=== PATIENT | female | born 1960 | race Caucasian/White ===

== ENCOUNTER 2017-06-20 12:32 | Inpatient (IN) | payer MEDICARE, OTHER ==
[~2017-06-20] VITALS: Ht 162.6 cm; Wt 75.4 kg
[~2017-06-20 12:32] MED LIST: ALBU8.5H6 IH; ALBU8.5H8 IH; AMIT25TA PO; ASPIRIN; CARI350T PO; CELE200C PO; CETI10CA PO; CLON1TAB23 PO; ESTR0.5T PO; FENT1PAT17 TD; FLUT16SP21 NS; FLUT1DIS5 IH; GABA800T2 PO; LANS30CA PO; LEXAPRO10 MG PO; LIDO700A4 TP; LISI1TAB5 PO; MESA800T2 PO; METF500T4 PO; METO10TA PO; MILN50TA PO; MONT10TA6 PO; NYST60PO TP; OMEG1CAP2 PO; POLY17PO5 PO; lorazapam
--- NOTE | 2017-06-20 12:44 | EKG ---
[address] [address] Test Date: 2017-06-20 Test Time: 12:39:20 Pat Name: ANÍBAL MOON Department: Room: Gender: F Pricing Supervisor: ARIADNE : 1960 Requested By: MICHELLE PHOENIX Order Number: [id number] Reading MD: Jose Gates Measurements Intervals Bear Rate: 92 P: 28 NE: 138 QRS: 73 QRSD: 82 T: 70 QT: 342 QTc: 428 Interpretive Statements SINUS RHYTHM Electronically Signed On 06-26-2017 14:35:29 PAPER REELER by Jose Gates
[2017-06-20] MEDS ORDERED: ONDANSETRON PF 4 MG/2 ML VIAL. IV ONE (13:00)
[2017-06-20] MEDS ORDERED: LORazepam 2 MG/ML VIAL IV ONE (13:00)
[2017-06-20] MEDS ORDERED: HYDROmorphone PF 1 MG/ML DISP.SYRIN IV/SQ PRN (13:00)
[2017-06-20] MEDS ORDERED: 0.9 % SODIUM CHLORIDE 10 ML DISP.SYRIN. IV PRN (13:00)
[2017-06-20] MEDS ORDERED: IV NORMAL SALINE 1,000ML 1,000 ML IV SCH (13:00)
[2017-06-20 13:22] LABS: BASO % 1 % (0-3); EOS # 0.2 x10^3/uL (0.0-0.7); EOS % 3 % (0-3); HEMATOCRIT 37.5 % (36.0-47.0); HEMOGLOBIN 12.6 g/dL (12.0-15.5); LYMPH # 3.1 x10^3/uL (1.0-4.8); LYMPH % 49 % (24-48); MEAN CORPUSCULAR HEMOGLOBIN 29 pg (25-35); MEAN CORPUSCULAR HGB CONC 34 g/dL (31-37); MEAN CORPUSCULAR VOLUME 87 fL (79-100); MONO # 0.4 x10^3/uL (0.0-1.1); MONO % 6 % (0-9); NEUT # 2.6 x10^3uL (1.8-7.7); NEUT % 41 % (31-73); PLATELET COUNT 228 x10^3/uL (140-400); RED CELL DISTRIBUTION WIDTH 13.2 % (11.5-14.5); WHITE BLOOD COUNT 6.3 x10^3/uL (4.0-11.0)
--- NOTE | 2017-06-20 13:22 | RAD ---
Portable chest, 06/20/2017: History: Chest pain Comparison is made to a study from 08/14/2013. The heart size and pulmonary vascularity are normal. No pulmonary infiltrates are seen. There is no evidence of pleural fluid. IMPRESSION: No acute cardiopulmonary abnormality is detected.
[2017-06-20 13:33] LABS: HEMOGLOBIN ISTAT 13.3 gm/dL; POTASSIUM ISTAT 4.1 mmol/L (3.5-5.0)
--- NOTE | 2017-06-20 13:33 | PHYS DOC ---
Past History Past Medical History: COPD, CVA, GERD, High Cholesterol, Hypertension, IBS, Lung Disease, Migraines, Other Past Surgical History: Other Smoking: Greater than 1 pack/day Alcohol Use: None Drug Use: None Adult General Chief Complaint Chief Complaint: CHEST PAIN HPI HPI This is a pleasant 56-year-old female with a history of emphysema, stress incontinence, history of small CVAs with no residual deficits, chronic ankylosing spondylitis with chronic back pain, fibromyalgia, diabetes, high blood pressure and high cholesterol, migraine history, irritable bowel syndrome , acid reflux, delayed gastric bleeding, COPD who presents with chest pain that began early this morning. Patient began having chest pain about 12:30 PM at rest that was located underneath the left breast with radiation to the left axilla. He did not make her lightheaded and dizzy. It has been waxing and waning since that time. She has been seen by manager product management in the past and prescribed aspirin and nitroglycerin for these pains when she had them. She normal takes one nitroglycerin which relieved his symptoms she took 3 this morning in rapid succession every 5 minutes 3 without much improvement. The pain is not ripping or tearing. It is not sudden onset worst of life. She denies any nausea, vomiting, cough with these symptoms. She also further denies any vomiting or diarrhea. She said the pain is worse with breathing and chest wall movement. It is better when she holds her breath or doesn't move her chest wall. It is not associated with food or position other than putting direct pressure over the ribs on that side. She denies any direct trauma or falls. She also denies any recent trauma or antibiotics. Differential diagnosis for chest pain: Pericarditis, myocarditis, endocarditis, pneumothorax, pneumonia, aortic dissection, esophageal spasm, esophagitis, peptic ulcer disease, acute coronary syndrome, mediastinitis, Boerhaave syndrome , musculoskeletal chest wall pain, costochondritis, intercostal strain, rib fracture, pulmonary contusion, pneumonitis, pleural effusion, pericardial effusion, pericardial tamponode, and pleurisy. EKG done on arrival at 12:39 PM demonstrates a heart rate of 92 there is a P- wave every QRS this is normal sinus rhythm is normal MD interval 138, normal QR S with H2, normal QTC of 428. There is no ST segment T-wave changes consistent with acute coronary ischemia. She does have nonspecific T-wave flattening in V1 and V2 Review of Systems Review of Systems Constitutional: Denies fever or chills [] Eyes: Denies change in visual acuity, redness, or eye pain [] HENT: Denies nasal congestion or sore throat [] Respiratory: He does have an occasional nonproductive cough but no shortness of breath other than the fact that it hurts to breathe [] Cardiovascular: No additional information not addressed in HPI [] GI: Denies abdominal pain, nausea, vomiting, bloody stools or diarrhea [] : Denies dysuria or hematuria [] Musculoskeletal: She has chronic back pain and chronic joint pain along with muscle pain Integument: Denies rash or skin lesions [] Neurologic: Denies headache, focal weakness or sensory changes [] Endocrine: Denies polyuria or polydipsia [] All other systems were reviewed and found to be within normal limits, except as documented in this note. Current Medications Current Medications Current Medications Medications (Trade) Dose Ordered Sig/Chay Start Time Stop Time Status Last Admin Dose Admin Hydromorphone HCl (Dilaudid) 1 mg PRN Q15MIN PRN 06/20/17 13:00 06/21/17 12:59 06/20/17 13:03 1 MG Lorazepam (Ativan) 1 mg 1X ONCE 06/20/17 13:00 06/20/17 13:01 DC 06/20/17 13:04 1 MG Ondansetron HCl (Zofran) 4 mg 1X ONCE 06/20/17 13:00 06/20/17 13:01 DC 06/20/17 13:02 4 MG Sodium Chloride (Normal Saline Flush) 10 ml QSHIFT PRN 06/20/17 13:00 Allergies Allergies Allergies Coded Allergies Type Severity Reaction Last Updated Verified azithromycin Allergy Unknown yellow eyes 06/20/17 Yes carvedilol Allergy Unknown "made me sick" 06/20/17 Yes cephalexin Allergy Unknown 11/26/13 Yes ciprofloxacin Allergy Unknown 11/26/13 Yes fluconazole Allergy Unknown 11/26/13 Yes nebivolol Allergy Unknown 06/20/17 Yes nystatin Allergy Unknown sores in mouth 06/20/17 Yes potassium chloride Allergy Unknown 11/26/13 Yes pravastatin Allergy Unknown unsteady on feet 06/20/17 Yes sulfamethoxazole Allergy Unknown 11/26/13 Yes trimethoprim Allergy Unknown 11/26/13 Yes Uncoded Allergies Type Severity Reaction Last Updated Verified ducolax Adverse Reaction Unknown vomits 06/20/17 hctz Adverse Reaction Unknown gi problems 06/20/17 Physical Exam Physical Exam Other vital signs recorded on the chart patient noted to be hypertensive without tachycardia, hypoxia or tachypnea Constitutional: Well developed, well nourished, patient is obese but obviously uncomfortable she is somewhat anxious and shaky. [] HENT: Normocephalic, atraumatic, bilateral external ears normal, oropharynx dry , no oral exudates, nose normal. [] Eyes: PERRLA, EOMI, conjunctiva normal, no discharge. [] Neck: Normal range of motion, no tenderness, supple, no stridor. [] Cardiovascular:Heart rate regular rhythm, no murmur she has marked tenderness to palpation over the left chest wall underneath the left breast with radiation to the axilla. It is deeper than my fingers and not easily reproduced on exam Lungs & Thorax: Bilateral breath sounds clear to auscultation [] Abdomen: Bowel sounds normal, soft, no tenderness, no masses, no pulsatile masses. [] Skin: Warm, dry, no erythema, she has no dermatomal rash or vesicles on her chest wall. Extremities: No tenderness, no cyanosis, no clubbing, ROM intact, no edema. [] Neurologic: Alert and oriented X 3, normal motor function, normal sensory function, no focal deficits noted. [] Psychologic she seems somewhat anxious her affect is relatively blunted.] Current Patient Data Vital Signs Vital Signs Date Time Temp Pulse Resp B/P (MAP) Pulse Ox O2 Delivery O2 Flow Rate FiO2 06/20/17 13:03 20 96 Lab Results Laboratory Tests Test 06/20/17 13:12 White Blood Count 6.3 x10^3/uL (4.0-11.0) Red Blood Count 4.30 x10^6/uL (3.50-5.40) Hemoglobin 12.6 g/dL (12.0-15.5) Hematocrit 37.5 % (36.0-47.0) Mean Corpuscular Volume 87 fL (79-100) Mean Corpuscular Hemoglobin 29 pg (25-35) Mean Corpuscular Hemoglobin Concent 34 g/dL (31-37) Red Cell Distribution Width 13.2 % (11.5-14.5) Platelet Count 228 x10^3/uL (140-400) Neutrophils (%) (Auto) 41 % (31-73) Lymphocytes (%) (Auto) 49 % (24-48) H Monocytes (%) (Auto) 6 % (0-9) Eosinophils (%) (Auto) 3 % (0-3) Basophils (%) (Auto) 1 % (0-3) Neutrophils # (Auto) 2.6 x10^3uL (1.8-7.7) Lymphocytes # (Auto) 3.1 x10^3/uL (1.0-4.8) Monocytes # (Auto) 0.4 x10^3/uL (0.0-1.1) Eosinophils # (Auto) 0.2 x10^3/uL (0.0-0.7) Basophils # (Auto) 0.0 x10^3/uL (0.0-0.2) EKG EKG [] Radiology/Procedures Radiology/Procedures [] [place] [address] IMAGING REPORT Signed PATIENT: ANÍBAL MOON ACCOUNT: [id number] : 1960 LOCATION: ER AGE: 56 SEX: F EXAM STATUS: REG ER ORD. PHYSICIAN: MICHELLE PHOENIX MD REASON: chest pain PROCEDURE: PORTABLE CHEST 1V Portable chest, 06/20/2017: History: Chest pain Comparison is made to a study from 08/14/2013. The heart size and pulmonary vascularity are normal. No pulmonary infiltrates are seen. There is no evidence of pleural fluid. IMPRESSION: No acute cardiopulmonary abnormality is detected. DICTATED AND SIGNED BY: SUZANNE LUKE MD DATE: 06/20/17 1318 CC: MICHELLE PHOENIX MD; DILLON BERUMEN MD ~ Course & Med Decision Making Course & Med Decision Making Pertinent Labs and Imaging studies reviewed. (See chart for details) \\ Percent for the new onset of chest pain that began about 12:30 PM right before arrival. Patient EKG is unremarkable upon arrival at 12:39 PMDifferential diagnosis for chest pain: Pericarditis, myocarditis, endocarditis, pneumothorax , pneumonia, aortic dissection, esophageal spasm, esophagitis, peptic ulcer disease, acute coronary syndrome, mediastinitis, Boerhaave syndrome, musculoskeletal chest wall pain, costochondritis, intercostal strain, rib fracture, pulmonary contusion, pneumonitis, pleural effusion, pericardial effusion, pericardial tamponode, and pleurisy. patient's heart score which rates need for admission as she score is 4. This is based on age, history, and risk factors. History: Highly suspicious 2 points moderately suspicious 1. slightly suspicious 0 point EKG: ST segment depression 2. nonspecific repolarization disturbance 1. normal 0 point Age: Greater than 65 2 points, 65-45 1., less than 45 years old 0 points Risk factors:> 3 risk factors 2 points, 1-2 risk factors one point, no risk factors 0 point Troponin: > 2 times normal 2 points, 1-2 times normal 1., normal limits 0 point Total score: Score % pts MACE/n MACE Policy 0-3 32% 1.9% 0.05% Discharge 4-6 51% 413/3136 13% 1.3% Observation Risk management 7-10 17% 518/1045 50% 2.8% Observation Treatment, CAG [] AP chest x-ray was reviewed by me demonstrated no acute cardiopulmonary disease. History troponin at approximately 1:30 PM return by i-STAT is negative. CBC, CMP the i-STAT is unremarkable. Target Protection Specialist note: Dr. Holt Target Protection Specialist called at of the service 1:39 pm Consult called back at 1:39 pm Discussed the case I presented and they agreed with admission. Time of acceptance 1:39 "I have assessed this patient clinically and believe that their condition requires an admission to the hospital. After consulting the admitting physician about this case, they have asked that I admit this patient to their service as an inpatient based on the clinical presentation and my impression." Dimer negative at 0.2 to Dragon Disclaimer Dragon Disclaimer This electronic medical record was generated, in whole or in part, using a voice recognition dictation system. Departure Departure: Impression: Primary Impression: Chest pain Additional Impression: Hypertension Disposition: 09 ADMITTED INPATIENT Admitting Physician: Michelle Holt Condition: GUARDED Referrals: DILLON BERUMEN MD (PCP) Problem Qualifiers MICHELLE PHOENIX MD Jun 20, 2017 13:33
[2017-06-20 13:37] LABS: ALBUMIN 3.3 g/dL (3.4-5.0); DIRECT BILIRUBIN 0.1 mg/dL (0.0-0.2); MAGNESIUM 1.6 mg/dL (1.8-2.4); TOTAL BILIRUBIN 0.2 mg/dL (0.2-1.0); TOTAL PROTEIN 6.7 g/dL (6.4-8.2)
[2017-06-20] MEDS ORDERED: ACETAMINOPHEN 325 MG TABLET PO PRN (13:45)
[2017-06-20] MEDS ORDERED: HYDROmorphone PF 1 MG/ML DISP.SYRIN IV PRN (13:45)
[2017-06-20] MEDS ORDERED: NITROGLYCERIN SUBLINGUAL 0.4 MG BOTTLE OF 25. SL PRN ×3 (13:45→17:30)
[2017-06-20] MEDS ORDERED: ONDANSETRON PF 4 MG/2 ML VIAL. IV PRN (14:00)
[2017-06-20] MEDS ORDERED: MAGNESIUM SULFATE 2GM 50 ML IV ONE (14:00)
[2017-06-20 14:28] LABS: BILIRUBIN,URINE NEG (NEG); CLARITY,URINE CLEAR; COLOR,URINE YELLOW; GLUCOSE,URINE NEG (NEG)
[2017-06-20 14:29] LABS: BACTERIA,URINE FEW /HPF (0-FEW); NITRITE,URINE NEG (NEG); RBC,URINE RARE /HPF (0-2); SQUAMOUS EPITHELIAL CELL,UR FEW /LPF; UROBILINOGEN,URINE 0.2 mg/dL (0.2 mg/dL); WBC,URINE 0 /HPF (0-4)
[2017-06-20] MEDS: IPRATRPIUM/ALBUTEROL 0.5/2.5MG 3 ML NEBU. NEB SCH ×2 (15:32→20:00)
[2017-06-20 15:35] VITALS: BP 139/76
[2017-06-20] MEDS ORDERED: FURO-69 PO (16:54)
[2017-06-20] MEDS ORDERED: CETI10TA16 PO (17:08)
[2017-06-20] MEDS ORDERED: METF500T4 PO (17:08)
[2017-06-20] MEDS ORDERED: LIDO700A39 TP (17:08)
[2017-06-20] MEDS ORDERED: LORA1TAB PO (17:08)
[2017-06-20] MEDS ORDERED: GABA-586 PO (17:08)
[2017-06-20] MEDS ORDERED: MESA0.372 PO (17:08)
[2017-06-20] MEDS ORDERED: ESTR0.5T PO (17:08)
[2017-06-20] MEDS ORDERED: ICOS1CAP PO ×2 (17:08→17:13)
[2017-06-20] MEDS ORDERED: METO10TA81 PO (17:08)
[2017-06-20] MEDS ORDERED: FLUO20CA16 PO (17:08)
[2017-06-20] MEDS ORDERED: DICL100G18 TP (17:08)
[2017-06-20] MEDS ORDERED: PANT40TA5 PO (17:08)
[2017-06-20] MEDS ORDERED: ASPI-630 PO (17:08)
[2017-06-20] MEDS ORDERED: CLON1TAB3 PO (17:08)
[2017-06-20] MEDS ORDERED: TIZA4TAB PO (17:08)
[2017-06-20] MEDS ORDERED: BUDE10.22 IH (17:08)
[2017-06-20] MEDS ORDERED: MORP1CAP16 PO (17:08)
[2017-06-20] MEDS ORDERED: MONT10TA6 PO (17:08)
[2017-06-20] MEDS ORDERED: POLY17PO5 PO (17:08)
[2017-06-20] MEDS ORDERED: NITR0.4T SL (17:08)
[2017-06-20] MEDS ORDERED: CHOL500016 PO (17:08)
[2017-06-20] MEDS ORDERED: ALBU8.5H8 INH (17:08)
[2017-06-20] MEDS ORDERED: AMIT10TA PO (17:08)
[2017-06-20] MEDS ORDERED: FURO20TA3 PO (17:08)
[2017-06-20] MEDS ORDERED: CELE200C PO (17:08)
[2017-06-20] MEDS ORDERED: POLYETHYLENE GLYCOL 3350 17 GM PACKET. PO PRN (17:30)
[2017-06-20] MEDS ORDERED: ALBUTEROL SULFATE 8GM INHALER. INH PRN (17:30)
[2017-06-20] MEDS: IV NORMAL SALINE 1,000ML 1,000 ML IV SCH ×2 (17:51→22:00)
[2017-06-20] MEDS ORDERED: ALBUTEROL SULFATE 2.5 MG/3 ML NEBU. NEB PRN (18:00)
[2017-06-20] MEDS: MORPHINE SULFATE 2 MG/ML DISP.SYRIN. IV PRN (18:08)
[2017-06-20 19:36] VITALS: BP 118/72
[2017-06-20] MEDS: tiZANidine 4 MG TABLET. PO SCH (20:14)
[2017-06-20] MEDS: CELECOXIB 200 MG CAPSULE PO SCH (20:14)
[2017-06-20] MEDS: DICLOFENAC SODIUM 1% TOPICAL GEL 100GM TUBE. TP SCH (20:15)
[2017-06-20] MEDS: ALBUTEROL SULFATE 2.5 MG/3 ML NEBU. NEB SCH (20:38)
[2017-06-20] MEDS: BUDESONIDE 0.5 MG/2 ML NEBU NEB SCH (20:39)
[2017-06-20] MEDS ORDERED: AMITRIPTYLINE HCL 10 MG TABLET PO SCH (21:00)
[2017-06-20] MEDS ORDERED: clonazePAM 1 MG TABLET PO SCH ×2 (21:00)
[2017-06-20] MEDS ORDERED: NON FORMULARY ITEM (Icosapent Ethyl (Vascepa) 2 GM) PO SCH (21:00)
[2017-06-20] MEDS ORDERED: MONTELUKAST 10 MG TABLET. PO SCH (21:00)
[2017-06-20] MEDS ORDERED: MESALAMINE PO SCH (21:00)
[2017-06-21 00:39] VITALS: BP 106/65
[2017-06-21] MEDS: MORPHINE SULFATE 2 MG/ML DISP.SYRIN. IV PRN ×2 (02:35→07:51)
[2017-06-21] MEDS: IV NORMAL SALINE 1,000ML 1,000 ML IV SCH (02:38)
[2017-06-21] MEDS: tiZANidine 4 MG TABLET. PO SCH (05:25)
[2017-06-21] MEDS: IPRATRPIUM/ALBUTEROL 0.5/2.5MG 3 ML NEBU. NEB SCH ×2 (05:37→09:23)
[2017-06-21] MEDS: ALBUTEROL SULFATE 2.5 MG/3 ML NEBU. NEB SCH ×2 (05:40→09:25)
[2017-06-21 06:05] VITALS: BP 114/72
[2017-06-21 07:07] LABS: BASO % 1 % (0-3); EOS # 0.2 x10^3/uL (0.0-0.7); EOS % 4 % (0-3); HEMATOCRIT 35.2 % (36.0-47.0); HEMOGLOBIN 11.7 g/dL (12.0-15.5); LYMPH # 3.3 x10^3/uL (1.0-4.8); LYMPH % 62 % (24-48); MEAN CORPUSCULAR HEMOGLOBIN 29 pg (25-35); MEAN CORPUSCULAR HGB CONC 33 g/dL (31-37); MEAN CORPUSCULAR VOLUME 88 fL (79-100); MONO # 0.4 x10^3/uL (0.0-1.1); MONO % 7 % (0-9); NEUT # 1.4 x10^3uL (1.8-7.7); NEUT % 26 % (31-73); PLATELET COUNT 202 x10^3/uL (140-400); RED BLOOD COUNT 4.02 x10^6/uL (3.50-5.40); RED CELL DISTRIBUTION WIDTH 13.3 % (11.5-14.5); WHITE BLOOD COUNT 5.2 x10^3/uL (4.0-11.0)
[2017-06-21 07:16] LABS: ALBUMIN 3.1 g/dL (3.4-5.0); CALCIUM 8.2 mg/dL (8.5-10.1); CREATININE 0.8 mg/dL (0.6-1.0); GFR 73.7; POTASSIUM 4.2 mmol/L (3.5-5.1); TOTAL BILIRUBIN 0.2 mg/dL (0.2-1.0); TOTAL PROTEIN 6.2 g/dL (6.4-8.2)
[2017-06-21] MEDS ORDERED: METOCLOPRAMIDE 10 MG TABLET PO SCH (07:30)
[2017-06-21] MEDS: CELECOXIB 200 MG CAPSULE PO SCH (07:49)
[2017-06-21] MEDS: DICLOFENAC SODIUM 1% TOPICAL GEL 100GM TUBE. TP SCH (07:50)
[2017-06-21 07:56] VITALS: BP 157/87
[2017-06-21] MEDS ORDERED: FLUoxetine HCL 20 MG CAPSULE PO SCH (08:00)
[2017-06-21] MEDS: BUDESONIDE 0.5 MG/2 ML NEBU NEB SCH (08:00)
[2017-06-21] MEDS ORDERED: metFORMIN 500 MG TABLET PO SCH (08:00)
[2017-06-21] MEDS ORDERED: NON FORMULARY ITEM (Budesonide/Formoterol Fumarate (Symbicort 80-4.5 Mcg Inhaler) 1 PUFF) IH SCH (09:00)
[2017-06-21] MEDS ORDERED: NALTREXONE PO SCH (09:00)
[2017-06-21] MEDS ORDERED: GABAPENTIN 300 MG CAPSULE. PO SCH (09:00)
[2017-06-21] MEDS ORDERED: LIDOCAINE (700MG/PATCH) PATCH. TP SCH (09:00)
[2017-06-21] MEDS ORDERED: ESTRADIOL 1 MG TABLET PO SCH (09:00)
[2017-06-21] MEDS ORDERED: PANTOPRAZOLE 40 MG TABLET. PO SCH (09:00)
[2017-06-21] MEDS ORDERED: LORazepam 1 MG TABLET PO SCH (09:00)
[2017-06-21] MEDS ORDERED: CETIRIZINE HCL 10 MG TABLET PO SCH (09:00)
[2017-06-21] MEDS ORDERED: ASPIRIN 81 MG TAB.CHEW PO SCH (09:00)
[2017-06-21] MEDS ORDERED: MORPHINE SULFATE PO SCH (09:00)
[2017-06-21] MEDS ORDERED: FUROSEMIDE 20 MG TABLET PO SCH (09:00)
[2017-06-21] MEDS ORDERED: CHOLECALCIFEROL (VITAMIN D3) 1,000 UNIT TABLET PO SCH (09:00)
[2017-06-21] MEDS ORDERED: MORP15TA PO (09:47)
[2017-06-21] MEDS ORDERED: KETOROLAC 30 MG/ML VIAL. IV ONE (10:00)
--- NOTE | 2017-06-21 16:23 | SSS ---
ADMIT DATE: 06/21/2017 Stay was greater than 8 hours and less than 24. DISCHARGE DIAGNOSES: 1. Chest pain, noncardiac - costochondritis. 2. Fibromyalgia with multiple trigger points on her back. 3. Painful breasts, breast examination is negative. 4. Coronary artery disease. 5. Paroxysmal atrial fibrillation. ALLERGIES: Zithromax, Dulcolax, Carvedilol, cephalexin, Cipro, duloxetine, fluconazole, hydrochlorothiazide, nebivolol, nitrofurantoin, nystatin, potassium, pravastatin, pregabalin, sulfamethoxazole, trimethoprim sulfamethoxazole, and varenicline. Medications were reviewed. The patient corrected them. HOSPITAL COURSE: Basically, this is a 56-year-old female who developed left-sided chest pain under her ribs radiating to the back. The patient denied any type of exertional activity such as furniture lifting or anything like that. She has care provider that takes care of her. She took 3 nitroglycerin that did not relieve her pain. So, she presented to the emergency room. Workup was negative for IL, and while admitted, she received morphine and Toradol injection. She also was seen by cardiology. OBJECTIVE: VITAL SIGNS: Blood pressure 114/72, temperature 97.5, pulse 70, respirations 18, pulse ox 95% on room air. GENERAL: The patient is alert and oriented. Her color is good. Her tongue was moist, it is midline. NECK: Supple. LUNGS: Clear. CARDIOVASCULAR: Regular rhythm and rate. ABDOMEN: Soft, nontender. EXTREMITIES: Without edema. MUSCULOSKELETAL: The patient has exquisite palpatory tenderness to the anterior chest wall as well as the back musculature and over the left scapula. BREASTS: Reveals no masses; however, the exam was quite tender as far as palpatory goes. She is also tender in the axillae. LABORATORY DATA: Hemoglobin 11.7, hematocrit 35.2. Troponins were negative. Urine also negative. D-dimer negative. PLAN: The patient given 15 of short-acting morphine sulfate, immediate acting #15, 15 mg. She is on 100 mg of morphine daily, long acting combination with naltrexone. She will get with Dr. Hurd and informed her of this additional prescription. She will follow up for that mammogram and ultrasound that she had scheduled, but had to be canceled because of today. ZACK MEDINA DO DR: Ramandeep JOB#: [id number] / [id number]
--- NOTE | 2017-06-22 13:53 | EKG ---
[address] [address] Test Date: 2017-06-21 Test Time: 06:46:14 Pat Name: ANÍBAL MOON Department: Room: 117 A Gender: Seed Technician: : 1960 Requested By: ZACK MEDINA Order Number: [id number] Reading MD: Jose Gates Measurements Intervals Calvin Rate: P: MT: QRS: QRSD: T: QT: QTc: Interpretive Statements No previous ECG available for comparison Electronically Signed On 06-26-2017 16:41:23 SHEET PILE DRIVER OPERATOR by Jose Gates
== END 2017-06-21 10:55 | disposition home or self-care (01) | DRG 206 ==
LOC: ER 12:32 → 1 SOUTH 13:39
PROVIDERS: ADMIT Family Medicine; ATTEND Family Medicine
DX: M94.0 Chondrocostal junction syndrome [Tietze] (principal); I48.0 Paroxysmal atrial fibrillation; G43.909 Migraine, unspecified, not intractable, without status migrainosus; E11.9 Type 2 diabetes mellitus without complications; E66.9 Obesity, unspecified; E78.00 Pure hypercholesterolemia, unspecified; I10 Essential (primary) hypertension; I25.10 Atherosclerotic heart disease of native coronary artery without angina pectoris; K21.9 Gastro-esophageal reflux disease without esophagitis; K58.9 Irritable bowel syndrome, unspecified; M79.7 Fibromyalgia; F17.210 Nicotine dependence, cigarettes, uncomplicated; G89.29 Other chronic pain; N64.4 Mastodynia; M54.9 Dorsalgia, unspecified; J44.9 Chronic obstructive pulmonary disease, unspecified; Z88.1 Allergy status to other antibiotic agents; Z88.2 Allergy status to sulfonamides; Z86.73 Personal history of transient ischemic attack (TIA), and cerebral infarction without residual deficits; Z88.8 Allergy status to other drugs, medicaments and biological substances; Z68.28 Body mass index [BMI] 28.0-28.9, adult
CPT/HCPCS: 36415; 71010; 80047; 80053; 80076; 81001; 82947; 83690; 83735; 84443; 84484; 85025; 85379; 93005; 94640; J1170; J1885; J2060; J2270; J2405; J3475; J7613; J7620; J7626; J8597; J7030

== ENCOUNTER 2018-11-29 08:45 | Emergency (ER) | payer OTHER ==
[~2018-11-29] VITALS: Ht 161.3 cm; Wt 91.3 kg
[~2018-11-29 08:45] MED LIST changes: +ALBU2.5V8 IH; +ALBU2.5V8 INH; -ALBU8.5H8 IH; +AMIT10TA PO; +ASPI-630 PO; +BUDE10.22 IH; +CETI10TA16 PO; +CHOL500016 PO; +CLON1TAB11 PO; +DICL100G18 TP; +FLUO20CA16 PO; +FURO-69 PO; +FURO20TA3 PO; +GABA-586 PO; -GABA800T2 PO; +GABA800T5 PO; +ICOS1CAP PO; +LIDO700A39 TP; +LORA-254 PO; +MESA0.372 PO; +METF500T16 PO; -METF500T4 PO; +METO10TA81 PO; +MORP15TA PO; +MORP1CAP16 PO; +NITR0.4T SL; +PANT40TA5 PO; +TIZA4TAB PO
--- NOTE | 2018-11-29 09:42 | PHYS DOC ---
Past History Past Medical History: COPD, CVA, GERD, High Cholesterol, Hypertension, IBS, Lung Disease, Migraines, Other Past Surgical History: Hysterectomy, Other Smoking: Greater than 1 pack/day Alcohol Use: None Drug Use: None Adult General Chief Complaint Chief Complaint: KNEE SWELLING [facility] HPI Patient is a 58-year-old female with a history of chronic pain who is on EMBEDA with a recent diagnosis of a left Lopez cyst. She states the pain from this cyst is causing some breakthrough discomfort. She states she is been in contact with her primary care physician in [place] was told her an ice and heat regimen along with trying to alternate Tylenol and aspirin for the discomfort. Patient states she is here for something stronger for pain.] Review of Systems Review of Systems Constitutional: Denies fever or chills [] Eyes: Denies change in visual acuity, redness, or eye pain [] HENT: Denies nasal congestion or sore throat [] Respiratory: Denies cough or shortness of breath [] Cardiovascular: No additional information not addressed in HPI [] GI: Denies abdominal pain, nausea, vomiting, bloody stools or diarrhea [] : Denies dysuria or hematuria [] Musculoskeletal: Pain Left leg behind the knee[] Integument: Denies rash or skin lesions [] Neurologic: Denies headache, focal weakness or sensory changes [] Endocrine: Denies polyuria or polydipsia [] All other systems were reviewed and found to be within normal limits, except as documented in this note. Allergies Allergies Allergies Coded Allergies Type Severity Reaction Last Updated Verified carvedilol Allergy Intermediate "made me sick" 06/23/17 Yes cephalexin Allergy Intermediate 06/23/17 Yes ciprofloxacin Allergy Intermediate 06/23/17 Yes duloxetine Allergy Intermediate MUSCLE ACHES 06/23/17 Yes fluconazole Allergy Intermediate 06/23/17 Yes nebivolol Allergy Intermediate 06/23/17 Yes nitrofurantoin Allergy Intermediate LEG ACHES 06/23/17 Yes nystatin Allergy Intermediate sores in mouth 06/23/17 Yes potassium chloride Allergy Intermediate "K DUR" 06/23/17 Yes pravastatin Allergy Intermediate unsteady on feet 06/23/17 Yes pregabalin Allergy Intermediate WORSENED FIBROMYALGIA 06/23/17 Yes sulfamethoxazole Allergy Intermediate 06/23/17 Yes trimethoprim Allergy Intermediate 06/23/17 Yes varenicline Allergy Intermediate NIGHT TERRORS 06/23/17 Yes azithromycin Allergy Mild yellow eyes 06/23/17 Yes bisacodyl Allergy Mild VOMITS 06/20/17 Yes hydrochlorothiazide Allergy Mild GI PROBLEMS 06/20/17 Yes Physical Exam Physical Exam Constitutional: Well developed, well nourished, no acute distress, non-toxic appearance. [] HENT: Normocephalic, atraumatic, bilateral external ears normal, oropharynx moist, no oral exudates, nose normal. [] Eyes: PERRLA, EOMI, conjunctiva normal, no discharge. [] Neck: Normal range of motion, no tenderness, supple, no stridor. [] Cardiovascular:Heart rate regular rhythm, no murmur [] Lungs & Thorax: Bilateral breath sounds clear to auscultation [] [] Extremities: No significant left leg swelling. [] Neurologic: Alert and oriented X 3, normal motor function, normal sensory function, no focal deficits noted. [] Psychologic: Anxious and agitated. [] EKG EKG [] Radiology/Procedures Radiology/Procedures [] Course & Med Decision Making Course & Med Decision Making Pertinent Labs and Imaging studies reviewed. (See chart for details) ED course: Evaluation reveals a 58-year-old female who is on morphine for chronic pain with some pain in her left leg. Informed patient that there would be nothing that I could give her in the emergency department to help her with her discomfort today. I've encouraged her to take Tylenol or ibuprofen at home. This is the patient needs to follow with her primary care physician for management of her chronic pain.] Dragon Disclaimer Dragon Disclaimer This electronic medical record was generated, in whole or in part, using a voice recognition dictation system. Departure Departure: Impression: Primary Impression: Chronic pain disorder Additional Impression: Lopez's cyst of knee Disposition: HOME, SELF-CARE Condition: STABLE Referrals: DILLON BERUMEN MD (PCP) Patient Instructions: Chronic Pain, Chronic Pain Management Additional Instructions: You need to follow with your primary care physician for the management of your chronic pain and now with the additional pain caused by a Lopez's cyst. The Emergency Department will not manage chronic pain syndromes. The medication that you are on for pain is very strong. Continue the ice and heat regimen as prescribed by your primary care physician. You can take Tylenol 500 mg every 6 hours as needed. Problem Qualifiers Additional Impression: Lopez's cyst of knee Laterality: left Qualified Codes: M71.22 - Synovial cyst of popliteal space [Lopez], left knee HI FOFANA DO November 29, 2018 09:42
[2018-11-29 09:47] VITALS: BP 132/85
== END 2018-11-29 09:47 | disposition home or self-care (01) ==
LOC: ER 08:45
DX: G89.29 Other chronic pain (principal); M71.22 Synovial cyst of popliteal space [Baker], left knee; J44.9 Chronic obstructive pulmonary disease, unspecified; K21.9 Gastro-esophageal reflux disease without esophagitis; E78.00 Pure hypercholesterolemia, unspecified; I10 Essential (primary) hypertension; G43.909 Migraine, unspecified, not intractable, without status migrainosus; K58.9 Irritable bowel syndrome, unspecified; F17.200 Nicotine dependence, unspecified, uncomplicated; Z86.73 Personal history of transient ischemic attack (TIA), and cerebral infarction without residual deficits; Z88.1 Allergy status to other antibiotic agents; Z88.8 Allergy status to other drugs, medicaments and biological substances; Z88.2 Allergy status to sulfonamides
CPT/HCPCS: 99281

== ENCOUNTER 2019-11-11 17:29 | Inpatient (IN) | payer OTHER, MEDICAID ==
[~2019-11-11] VITALS: Ht 161.3 cm; Wt 97.2 kg
[~2019-11-11 17:29] MED LIST changes: +LIDO700A21 TP; -LIDO700A39 TP; +LISI1TAB19 PO; -LISI1TAB5 PO; -MONT10TA6 PO; +MONT10TA80 PO; -NITR0.4T SL; +NITR0.4T24 SL; -TIZA4TAB PO; +TIZA4TAB2 PO
--- NOTE | 2019-11-11 18:00 | PHYS DOC ---
Past History Past Medical History: Anemia, Anxiety, Arthritis, Bronchitis, COPD, CVA, Diabetes, Fibromyalgia, GERD, High Cholesterol, Hypertension, IBS, Lung Disease, Migraines, Pneumonia, Seizure, Stroke, TIA, Other Past Surgical History: Hysterectomy, Other Smoking: Greater than 1 pack/day Alcohol Use: None Drug Use: None General Adult EDM: Chief Complaint: COUGH HPI: HPI: "... I need a new antibiotic...this one that Dr. Berumen gave me is not working.. I am cough all the time...." " Yes I am still smoking... but a lot less..." " I can't stop coughing...so...I need a different antibiotic..."..." I think my tongue is swollen or got a yeast infection from the antibiotic that Kory put me on..." " I get short of breath...when I have to go very far...".."...I get so anxious"..... Patient is a 59 year old female who presents with above hx and complaints of cough. Pt. follows with Dr. Berumen. Patient advised that she has a chronic cou gh but is been worse the last 2 days. Patient states anytime she takes an antibiotic she gets thrush. Patient still smokes. Patient denies any specific ill contacts. Patient denies any recent travel outside the [place] area. Patient has history of past medical problems of Mellkerson Rosanthal Syndrome, stress urinary incontinence, small TIAs and strokes, ankylosing spondylitis, fibromyalgia, diabetes, elevated cholesterol, migraines, IBS, GERD, slow gastric transit time, multiple food allergies, multiple antibiotic allergies, seasonal allergies, B12 deficiency, chronic anemia, absent seizure spells, COPD, anxiety disorder and chronic bronchitis. Patient currently on Augmentin 875 twice a day. Patient advised that she has been using her inhaler every 2 hours. Patient denies any recent use of steroids. Patient states she frequently requesting an nurse to return to her room and check her saturations. Patient does not use chronic oxygen for her COPD and brought chronic bronchitis. Patient denies any recent use of steroids. Patient denies any tarry stools or changes and characteristics of her stooling. Patient saturations remained above 95% while off oxygen during her entire ED stay. Review of Systems: Review of Systems: Constitutional: Complains of subjective fever Eyes: Denies change in visual acuity HENT: Complains of nasal congestion Respiratory: Complains of a non-productive cough and shortness of breath Cardiovascular: Denies chest pain or edema GI: Denies abdominal pain, nausea, vomiting, bloody stools or diarrhea : Denies dysuria Musculoskeletal: complaints of chronic fibromyalgia Integument: Denies rash Neurologic: Denies headache, focal weakness or sensory changes Endocrine: Denies polyuria or polydipsia Lymphatic: Denies swollen glands Psychiatric: Hx. of anxiety Heart Score: HEART Score for Chest Pain: HEART Score for Chest Pain Response (Comments) Value History Slighlty/Non-Suspicious 0 ECG Normal 0 Age >45 - < 65 1 Risk Factors 1 or 2 Risk Factors 1 Troponin < Normal Limit 0 Total 2 Risk Factors: Risk Factors: DM, Current or recent (<one month) smoker, HTN, HLP, family h istory of CAD, obesity. Risk Scores: Score 0 - 3: 2.5% MACE over next 6 weeks - Discharge Home Score 4 - 6: 20.3% MACE over next 6 weeks - Admit for Clinical Observation Score 7 - 10: 72.7% MACE over next 6 weeks - Early Invasive Strategies Family History: Family History: Noncontributory Current Medications: Current Meds: See nursing for home meds Allergies: Allergies: Allergies Coded Allergies Type Severity Reaction Last Updated Verified carvedilol Allergy Intermediate "made me sick" 06/23/17 Yes cephalexin Allergy Intermediate 11/29/18 Yes ciprofloxacin Allergy Intermediate 11/29/18 Yes duloxetine Allergy Intermediate MUSCLE ACHES 11/29/18 Yes fluconazole Allergy Intermediate 11/29/18 Yes nebivolol Allergy Intermediate 11/29/18 Yes nitrofurantoin Allergy Intermediate LEG ACHES 11/29/18 Yes nystatin Allergy Intermediate sores in mouth 11/29/18 Yes potassium chloride Allergy Intermediate "K DUR" 11/29/18 Yes pravastatin Allergy Intermediate unsteady on feet 11/29/18 Yes pregabalin Allergy Intermediate WORSENED FIBROMYALGIA 11/29/18 Yes sulfamethoxazole Allergy Intermediate 11/29/18 Yes trimethoprim Allergy Intermediate 11/29/18 Yes varenicline Allergy Intermediate NIGHT TERRORS 11/29/18 Yes azithromycin Allergy Mild yellow eyes 11/29/18 Yes bisacodyl Allergy Mild VOMITS 11/29/18 Yes hydrochlorothiazide Allergy Mild GI PROBLEMS 11/29/18 Yes losartan Allergy Unknown 11/29/18 Yes Physical Exam: PE: Constitutional: Very anxious, non-toxic appearance. [] HENT: Normocephalic, atraumatic, bilateral external ears normal, oropharynx moist, no oral exudates, nose swollen turbinates and clear rhinorrhea Eyes: PERRLA, EOMI, conjunctiva normal, no discharge. [] Neck: Normal range of motion, no tenderness, supple, no stridor. [] Cardiovascular: Tachycardia heart rate regular rhythm, no murmur [] Lungs & Thorax: Bilateral breath sounds equal at apex with scattered wheezing throughout on auscultation. The pt.has some basilar crackles Abdomen: Bowel sounds normal, soft, no tenderness, no masses, no pulsatile masses. Old surgical scar Skin: Warm, dry, no erythema, no rash. [] Back: No tenderness, no CVA tenderness. [] Extremities: No tenderness, no cyanosis, no clubbing, ROM intact, bilateral ankle edema. [] No specific findings of cording noted in the legs. Neurologic: Alert and oriented X 3, normal motor function, normal sensory function, no focal deficits noted. DTRs +2 patellar and brachial Psychologic: Affect extremely anxious , judgement poor understanding of medical issues , . Patient refusing all medical exams at least once, decided to sign out AMA. However after patient discharge patient decided she wanted to stay and check back in. EKG: EKG: My interpretation EKG shows a sinus tachycardia at 101 bpm. No findings of acute STEMI of contralateral changes .[] Radiology/Procedures: Radiology/Procedures: [][address] [address] IMAGING REPORT Signed PATIENT: ANÍBAL MOON DACCOUNT: [id number] : 1960 LOCATION: ER AGE: 59 SEX: F EXAM STATUS: REG ER ORD. PHYSICIAN: VINCENT DE LA ROSA MD REASON: cough PROCEDURE: CHEST PA & LATERAL Chest radiograph 11/11/2019 6:35 PM INDICATION: Cough COMPARISON: 06/18/2017 TECHNIQUE: Frontal and lateral views of the chest are provided. FINDINGS: The cardiomediastinal silhouette is within normal limits. There are no pleural effusions. There is no pulmonary vascular congestion. There is no pneumothorax. Perihilar mixed interstitial and alveolar airspace disease is present. No significant osseous abnormality is identified. IMPRESSION: Perihilar mixed interstitial and alveolar airspace disease may represent multifocal pneumonia versus pulmonary edema. Recommend follow-up to resolution. Electronically signed by: Sheila Golden MD (11/11/2019 6:59 PM) [facility] DICTATED AND SIGNED BY: SHEILA GOLDEN MD DATE: 11/11/191858 CC: VINCENT DE LA ROSA MD; DILLON BERUMEN MD ~ Course & Med Decision Making: Course & Med Decision Making Pertinent Labs and Imaging studies reviewed. (See chart for details) Pt. Admitted to Dr. Casanova/ Dr. Dia. Discussed presentation test and treatment plan with . Will obtain a cardiology consult because of possible CHF. Impression: 1. Pneumonia-atypical 2. Leukocytosis 16.8 3. Anemia 6.7 microcytic hypochromic 4. Hyponatremia 131 5. Elevated creatinine 1.3 6. [id number] 7. Elevated [id number] dysfunction 8. Elevated d-dimer 1.37 9. Anxiety disorder 10.COPD/Chronic Bronchitis 11.Tobacco Use [] Dragon Disclaimer: Dragon Disclaimer: This electronic medical record was generated, in whole or in part, using a voice recognition dictation system. Departure Departure: Disposition: 01 HOME/RESIDENCE PRIOR TO ADM Condition: STABLE Referrals: DILLON BERUMEN MD (PCP) COVID-19 Assessment COVID-19 Patient Risks: Age 65 or older: No Sign of co-morbidity: Yes (CHRONIC BRONCHITIS, COPD,) Exp to person + for COVID: No Travel from affected area: No Lower respiratory symptoms: Yes Fever: No Comments: Use N95 face mask and eye protection as provided. VINCENT DE LA ROSA MD Nov 11, 2019 18:00
[2019-11-11] MEDS ORDERED: IV RINGERS SOLUTION,LACTATED 1,000 ML IV SCH (18:40)
--- NOTE | 2019-11-11 18:44 | EKG ---
[address] [address] Test Date: 2019-11-11 Test Time: 17:56:15 Pat Name: ANÍBAL MOON Department: Room: Gender: F Bi Lead: : 1960 Requested By: VINCENT DE LA ROSA Order Number: [id number] Reading MD: Jose Gates Measurements Intervals [place] Rate: 101 P: 52 [place]: 132 QRS: 45 QRSD: 82 T: 52 QT: 334 QTc: 434 Interpretive Statements SINUS TACHYCARDIA Electronically Signed On 11-12-2019 7:55:06 CDT by Jose Gates
[2019-11-11 18:46] LABS: BASO # 0.1 x10^3/uL (0.0-0.2); BASO % 1 % (0-3); EOS # 0.1 x10^3/uL (0.0-0.7); EOS % 0 % (0-3); HEMATOCRIT 22.5 % (36.0-47.0); LYMPH # 1.8 x10^3/uL (1.0-4.8); LYMPH % 11 % (24-48); MEAN CORPUSCULAR HEMOGLOBIN 19 pg (25-35); MEAN CORPUSCULAR HGB CONC 30 g/dL (31-37); MEAN CORPUSCULAR VOLUME 64 fL (79-100); MONO % 6 % (0-9); NEUT # 13.8 x10^3uL (1.8-7.7); NEUT % 82 % (31-73); PLATELET COUNT 346 x10^3/uL (140-400); RED BLOOD COUNT 3.54 x10^6/uL (3.50-5.40); RED CELL DISTRIBUTION WIDTH 19.1 % (11.5-14.5); WHITE BLOOD COUNT 16.8 x10^3/uL (4.0-11.0)
[2019-11-11 18:50] LABS: CALCIUM 8.7 mg/dL (8.5-10.1); CREATININE 1.3 mg/dL (0.6-1.0); GFR 41.6; POTASSIUM 3.9 mmol/L (3.5-5.1)
[2019-11-11 18:53] LABS: HEMOGLOBIN 6.7 g/dL (12.0-15.5)
[2019-11-11 19:02] LABS: ALBUMIN 3.1 g/dL (3.4-5.0); DIRECT BILIRUBIN 0.2 mg/dL (0.0-0.2); MAGNESIUM 1.6 mg/dL (1.8-2.4); TOTAL BILIRUBIN 0.5 mg/dL (0.2-1.0); TOTAL PROTEIN 7.3 g/dL (6.4-8.2)
--- NOTE | 2019-11-11 19:02 | RAD ---
Chest radiograph 11/11/2019 6:35 PM INDICATION: Cough COMPARISON: 06/18/2017 TECHNIQUE: Frontal and lateral views of the chest are provided. FINDINGS: The cardiomediastinal silhouette is within normal limits. There are no pleural effusions. There is no pulmonary vascular congestion. There is no pneumothorax. Perihilar mixed interstitial and alveolar airspace disease is present. No significant osseous abnormality is identified. IMPRESSION: Perihilar mixed interstitial and alveolar airspace disease may represent multifocal pneumonia versus pulmonary edema. Recommend follow-up to resolution. Electronically signed by: Mattie Garcia MD (11/11/2019 6:59 PM) ANNELISE
[2019-11-11 19:12] LABS: BARBITURATES NEG (NEG); BENZODIAZEPINES NEG (NEG); CANNABINOIDS NEG (NEG); COCAINE NEG (NEG); METHADONE NEG (NEG); OPIATES POS (NEG); PHENCYCLIDINE NEG (NEG)
[2019-11-11 19:14] LABS: AMPHETAMINE/METHAMPHETAMINE NEG (NEG)
[2019-11-11] MEDS ORDERED: FAMOTIDINE 20 MG/2 ML VIAL IVP ONE (19:30)
[2019-11-11 21:08] LABS: % BANDS 16 % (0-9); % LYMPHS 7 % (24-48); % MONOS 11 % (0-10); % SEGS 66 % (35-66)
[2019-11-11] MEDS ORDERED: ENOXAPARIN ** NOTE DOSE ** SYRINGE SQ ONE (21:25)
[2019-11-11 21:41] LABS: HYPOCHROMIA MOD
[2019-11-11 21:42] LABS: ANISOCYTOSIS PRESENT; MICROCYTOSIS PRESENT; POLYCHROMASIA PRESENT
[2019-11-11 21:43] LABS: PLT ESTIMATE ADEQUATE (ADEQUATE)
[2019-11-11] MEDS ORDERED: ACETAMINOPHEN 325 MG TABLET PO PRN (21:45)
[2019-11-11] MEDS ORDERED: ONDANSETRON PF 4 MG/2 ML VIAL. IVP PRN (21:45)
[2019-11-11 21:46] LABS: OVALOCYTES PRESENT; TARGET CELLS PRESENT; TEAR DROP CELLS PRESENT
[2019-11-11] MEDS ORDERED: LORazepam 1 MG TABLET PO ONE (22:15)
[2019-11-11] MEDS ORDERED: diphenhydrAMINE 50 MG/ML VIAL IVP ONE (22:15)
[2019-11-11] MEDS ORDERED: PIPERACILLIN/TAZOBACTAM 2.25 GM in IV NORMAL SALINE 50ML 50 ML IV SCH (23:00)
[2019-11-11] MEDS ORDERED: DULA1.5P SQ (23:16)
[2019-11-11] MEDS ORDERED: ESTR0.45 PO (23:16)
[2019-11-11 23:20] VITALS: BP 140/72
[2019-11-11] MEDS ORDERED: ESTR30CR VG (23:51)
[2019-11-12] VITALS (11 sets, daily range): BP systolic 119–184; BP diastolic 61–92
[2019-11-12 06:18] LABS: BASO # 0.1 x10^3/uL (0.0-0.2); BASO % 1 % (0-3); EOS # 0.2 x10^3/uL (0.0-0.7); EOS % 1 % (0-3); LYMPH # 1.7 x10^3/uL (1.0-4.8); LYMPH % 10 % (24-48); MEAN CORPUSCULAR HEMOGLOBIN 20 pg (25-35); MEAN CORPUSCULAR HGB CONC 31 g/dL (31-37); MEAN CORPUSCULAR VOLUME 66 fL (79-100); MONO % 6 % (0-9); NEUT # 12.9 x10^3uL (1.8-7.7); NEUT % 82 % (31-73); PLATELET COUNT 337 x10^3/uL (140-400); RED BLOOD COUNT 3.93 x10^6/uL (3.50-5.40); RED CELL DISTRIBUTION WIDTH 20.8 % (11.5-14.5); WHITE BLOOD COUNT 15.9 x10^3/uL (4.0-11.0)
[2019-11-12 06:22] LABS: CALCIUM 9.3 mg/dL (8.5-10.1); GFR 56.4
[2019-11-12] MEDS ORDERED: IOHEXOL 350 MG/ML 100 ML VIAL. IV ONE (07:45)
--- NOTE | 2019-11-12 07:54 | PDOC2 ---
CARDIAC CONSULT DATE OF CONSULT Date Of Consult DATE: 11/12/19 TIME: 07:46 REASON FOR CONSULT Reason for Consult CHF REFERRING PHYSICIAN Referring Physician Dr. Mendoza SOURCE Source: Chart review, Patient HPI History of Present Illness This is a 59 yo female who presented secondary to cough. PAST MEDICAL HISTORY Cardiovascular: hyperipidemia Pulmonary: COPD CENTRAL NERVOUS SYSTEM: Periperal neuropathy, TIA GI: GERD, Irritable bowel disease Psych: Anxiety, Depression Musculoskeletal: Osteoarthritis Rheumatologic: Fibromyalgia Endocrine: Diabetes PAST SURGICAL HISTORY Past Surgical History: No pertinent history FAMILY HISTORY Family History: Heart Disease SOCIAL HISTORY Smoke: 1 pack per day ALCOHOL: none Drugs: None Lives: Alone CURRENT MEDICATIONS Current Medications Current Medications Lactated Ringer's 1,000 ml @ 1,000 mls/hr Q1H IV Last administered on 11/11/19at 18:53; Start 11/11/19 at 18:40; Stop 11/11/19 at 19:39; Status DC Famotidine (Pepcid Vial) 20 mg 1X ONCE IVP Last administered on 11/11/19at 20:55; Start 11/11/19 at 19:30; Stop 11/11/19 at 19:31; Status DC Enoxaparin Sodium (Lovenox 100mg Syringe) 90 mg 1X ONCE SQ Last administered on 11/11/19at 21:27; Start 11/11/19 at 21:25; Stop 11/11/19 at 21:26; Status DC Ondansetron HCl (Zofran) 4 mg PRN Q4HRS PRN IVP NAUSEA/VOMITING; Start 11/11/19 at 21:45; Stop 11/12/19 at 21:44 Acetaminophen (Tylenol) 650 mg PRN Q4HRS PRN PO FEVER; Start 11/11/19 at 21:45; Stop 11/12/19 at 21:44 Albuterol/ Ipratropium (Duoneb) 3 ml RTQID NEB ; Start 11/12/19 at 08:00; Stop 11/13/19 at 07:59 Piperacillin Sod/ Tazobactam Sod 2.25 gm/Sodium Chloride 50 ml @ 100 mls/hr BID IV ; Start 11/11/19 at 23:00; Stop 11/12/19 at 00:40; Status DC Lorazepam (Ativan) 2 mg 1X ONCE PO Last administered on 11/12/19at 00:46; Start 11/11/19 at 22:15; Stop 11/11/19 at 22:16; Status DC Diphenhydramine HCl (Benadryl) 25 mg 1X ONCE IVP Last administered on 11/12/19at 01:40; Start 11/11/19 at 22:15; Stop 11/11/19 at 22:16; Status DC Iohexol (Omnipaque 350 Mg/ml) 100 ml 1X ONCE IV ; Start 11/12/19 at 07:45; Stop 11/12/19 at 07:46; Status UNV Active Scripts Active Reported Premarin (Estrogens, Conjugated) 30 Gm Cream.appl 0.5 Gm VG TWICE WEEKLY Trulicity (Dulaglutide) 1.5 Mg/0.5 Ml Pen.injctr 1.5 Mg SQ PRN PRN Nitrostat (Nitroglycerin) 0.4 Mg Tab.subl 1 Tab SL UD PRN Prozac (Fluoxetine Hcl) 20 Mg Capsule 1 Cap PO DAILYWBKFT Vitamin D3 (Cholecalciferol (Vitamin D3)) 5,000 Unit Tablet 1 Tab PO DAILY Miralax (Polyethylene Glycol 3350) 17 Gm Powd.pack 1 Packet PO DAILY PRN Aspirin 81 Mg Tab.chew 81 Mg PO DAILY Voltaren (Diclofenac Sodium) 100 Gm Gel..gram. 1 Gm TP TID Metformin Hcl 500 Mg Tablet 1 Tab PO DAILY Tizanidine Hcl (Tizanidine HCl) 4 Mg Tablet 4 Mg PO TID Symbicort 80-4.5 Mcg Inhaler (Budesonide/Formoterol Fumarate) 10.2 Gm Hfa.aer.ad 1 Puff IH DAILY Cetirizine Hcl 10 Mg Tablet 1 Tab PO DAILY Apriso (Mesalamine) 0.375 Gm Cap.er.24h 1 Cap PO PRN BID PRN Pantoprazole Sodium 40 Mg Tablet.dr 1 Tab PO DAILY Celebrex (Celecoxib) 200 Mg Capsule 1 Cap PO BID Singulair Tablet (Montelukast Sodium) 10 Mg Tablet 10 Mg PO HS Vascepa (Icosapent Ethyl) 1 Gm Capsule 2 Gm PO BID Estradiol 0.5 Mg Tablet 1 Tab PO DAILY Reglan (Metoclopramide Hcl) 10 Mg Tablet 0.5 Tab PO TIDAC Clonazepam 1 Mg Tablet 2 Tab PO QHS Amitriptyline Hcl 10 Mg Tablet 3 Tab PO QHS Gabapentin (Gabapentin) 300 Mg Capsule 900 Mg PO DAILY Ativan (Lorazepam) 1 Mg Tablet 1 Tab PO DAILY Furosemide 20 Mg Tablet 10 Mg PO DAILY Proair Hfa Inhaler (Albuterol Sulfate) 8.5 Gm Hfa.aer.ad 1 Puff INH PRN Q8HRS PRN Embeda ER 100-4 mg Capsule (Morphine Sulfate/Naltrexone) 1 Each Cap.er.po 1 Each PO DAILY ALLERGIES Allergies: Coded Allergies: carvedilol (Verified Allergy, Intermediate, "made me sick", 06/23/17) cephalexin (Verified Allergy, Intermediate, 11/11/19) ciprofloxacin (Verified Allergy, Intermediate, 11/29/18) duloxetine (Verified Allergy, Intermediate, MUSCLE ACHES, 11/29/18) fluconazole (Verified Allergy, Intermediate, 11/29/18) nebivolol (Verified Allergy, Intermediate, 11/29/18) nitrofurantoin (Verified Allergy, Intermediate, LEG ACHES, 11/29/18) nystatin (Verified Allergy, Intermediate, sores in mouth, 11/29/18) potassium chloride (Verified Allergy, Intermediate, "K DUR", 11/29/18) pravastatin (Verified Allergy, Intermediate, unsteady on feet, 11/29/18) pregabalin (Verified Allergy, Intermediate, WORSENED FIBROMYALGIA, 11/29/18) sulfamethoxazole (Verified Allergy, Intermediate, 11/29/18) trimethoprim (Verified Allergy, Intermediate, 11/29/18) varenicline (Verified Allergy, Intermediate, NIGHT TERRORS, 11/29/18) azithromycin (Verified Allergy, Mild, yellow eyes, 11/29/18) bisacodyl (Verified Allergy, Mild, VOMITS, 11/29/18) fluticasone (Verified Allergy, Mild, Anxiety, 11/11/19) anger, irritibility hydrochlorothiazide (Verified Allergy, Mild, GI PROBLEMS, 11/29/18) losartan (Verified Allergy, Unknown, 11/29/18) ROS Review of Systems 14 point ROS conducted with pertinent positives noted above in HPI PHYSICAL EXAM General: Alert, Oriented X3, Cooperative HEENT: Atraumatic, Mucous membr. moist/pink Lungs: Other (diminished bases ) Abdomen: Soft, Other (obese) Extremities: Other (trace bilateral LE edema ) Skin: No breakdown Neuro: Normal speech, Sensation intact Psych/Mental Status: Mental status NL, Mood NL MUSCULOSKELETAL: Osteoarthritic changes both hands VITALS Vital Signs Vital Signs Date Time Temp Pulse Resp B/P (MAP) Pulse Ox O2 Delivery O2 Flow Rate FiO2 11/12/19 06:39 97.8 101 20 178/85 (116) 97 Nasal Cannula 2.0 LABS LABS Laboratory Tests Test 11/11/19 17:45 11/11/19 18:45 11/12/19 05:45 White Blood Count 16.8 x10^3/uL (4.0-11.0) 15.9 x10^3/uL (4.0-11.0) Red Blood Count 3.54 x10^6/uL (3.50-5.40) 3.93 x10^6/uL (3.50-5.40) Hemoglobin 6.7 g/dL (12.0-15.5) 8.0 g/dL (12.0-15.5) Hematocrit 22.5 % (36.0-47.0) 26.0 % (36.0-47.0) Mean Corpuscular Volume 64 fL (79-100) 66 fL (79-100) Mean Corpuscular Hemoglobin 19 pg (25-35) 20 pg (25-35) Mean Corpuscular Hemoglobin Concent 30 g/dL (31-37) 31 g/dL (31-37) Red Cell Distribution Width 19.1 % (11.5-14.5) 20.8 % (11.5-14.5) Platelet Count 346 x10^3/uL (140-400) 337 x10^3/uL (140-400) Neutrophils (%) (Auto) 82 % (31-73) 82 % (31-73) Lymphocytes (%) (Auto) 11 % (24-48) 10 % (24-48) Monocytes (%) (Auto) 6 % (0-9) 6 % (0-9) Eosinophils (%) (Auto) 0 % (0-3) 1 % (0-3) Basophils (%) (Auto) 1 % (0-3) 1 % (0-3) Neutrophils # (Auto) 13.8 x10^3uL (1.8-7.7) 12.9 x10^3uL (1.8-7.7) Lymphocytes # (Auto) 1.8 x10^3/uL (1.0-4.8) 1.7 x10^3/uL (1.0-4.8) Monocytes # (Auto) 1.0 x10^3/uL (0.0-1.1) 1.0 x10^3/uL (0.0-1.1) Eosinophils # (Auto) 0.1 x10^3/uL (0.0-0.7) 0.2 x10^3/uL (0.0-0.7) Basophils # (Auto) 0.1 x10^3/uL (0.0-0.2) 0.1 x10^3/uL (0.0-0.2) Segmented Neutrophils % 66 % (35-66) Band Neutrophils % 16 % (0-9) Lymphocytes % 7 % (24-48) Monocytes % 11 % (0-10) Platelet Estimate Adequate (ADEQUATE) Polychromasia Present Hypochromasia Mod Anisocytosis Present Microcytosis Present Target Cells Present Tear Drop Cells Present Ovalocytes Present Prothrombin Time 10.3 SEC (9.4-11.4) Prothromb Time International Ratio 1.0 (0.9-1.1) Activated Partial Thromboplast Time 30 SEC (23-33) D-Dimer (Breanna) 1.37 mg/L (0.00-0.50) Sodium Level 131 mmol/L (136-145) 136 mmol/L (136-145) Potassium Level 3.9 mmol/L (3.5-5.1) 4.0 mmol/L (3.5-5.1) Chloride Level 94 mmol/L (98-107) 99 mmol/L (98-107) Carbon Dioxide Level 24 mmol/L (21-32) 27 mmol/L (21-32) Anion Gap 13 (6-14) 10 (6-14) Blood Urea Nitrogen 14 mg/dL (7-20) 9 mg/dL (7-20) Creatinine 1.3 mg/dL (0.6-1.0) 1.0 mg/dL (0.6-1.0) Estimated GFR (Cockcroft-Gault) 41.6 56.4 Glucose Level 165 mg/dL (70-99) 153 mg/dL (70-99) Calcium Level 8.7 mg/dL (8.5-10.1) 9.3 mg/dL (8.5-10.1) Magnesium Level 1.6 mg/dL (1.8-2.4) Total Bilirubin 0.5 mg/dL (0.2-1.0) Direct Bilirubin 0.2 mg/dL (0.0-0.2) Aspartate Amino Transf (AST/SGOT) 24 U/L (15-37) Alanine Aminotransferase (ALT/SGPT) 29 U/L (14-59) Alkaline Phosphatase 117 U/L (46-116) Creatine Kinase 100 U/L (26-192) Troponin I Quantitative < 0.017 ng/mL (0-0.055) [id number] Natriuretic Peptide 1080 pg/mL (0-124) Total Protein 7.3 g/dL (6.4-8.2) Albumin 3.1 g/dL (3.4-5.0) Urine Opiates Screen Pos (NEG) Urine Methadone Screen Neg (NEG) Urine Barbiturates Neg (NEG) Urine Phencyclidine Screen Neg (NEG) Urine Amphetamine/Methamphetamine Neg (NEG) Urine Benzodiazepines Screen Neg (NEG) Urine Cocaine Screen Neg (NEG) Urine Cannabinoids Screen Neg (NEG) Urine Ethyl Alcohol Neg (NEG) STRESS TEST Stress Test SUMMARY/OPINION: Myocardial perfusion study appears to be very mildly abnormal but low risk. There is an inferior wall perfusion abnormality that is mainly seen at the apex and could be compatible with mild ischemia. Severe diaphragmatic attenuation is also present and is probably partly responsible for this perfusion abnormality. The left ventricular cavity did not dilate with stress. There are no large areas of jeopardized ischemic myocardium. Normal left ventricular systolic function, ejection fraction 78%. No regional wall motion abnormalities are present. Normal pulmonary to myocardial count ratio. Normal left ventricular end diastolic volume. Overall high risk scintigraphic indicato rs are not present. Compared to the previous study dated February 05, 2010: The previous study was not performed on D-SPECT camera. On the previous study an attenuation artifact in the anterior wall was present. Ejection fraction was 58%. In aggregate the current study is low risk in regards to predicted annual cardiovascular mortality rate. 10/18/16 - Procedure: GATED D-SPECT REGADENOSON THALLIUM MPI STRESS TEST ASSESSMENT/PLAN Assessment/Plan 1. Dyspnea, cough. CTA with infiltrates concerning for COVID. COVID testing pending. 2. Anemia; s/p transfusion 3. Mild acute on chronic probable diastolic CHF. Previously following with [facility], but has not been since since 2017 per chart review. 4. Hyperlipidemia 5. Hypertension; labile 6. STEVO; improved 7. Hypomagnesemia 8. Tobaccoism Recommendations Mild diuresis Start lisinopril for BP control. (multiple allergies noted; was previously on lisinopril and tolerated well COVID therapy protocol. Monitor QTc Echo to assess LV systolic function if COVID ruled out. Otherwise, this can be done on an outpatient basis Supportive care IVONNE PERRY APRN Nov 12, 2019 07:54
[2019-11-12] MEDS: IPRATRPIUM/ALBUTEROL 0.5/2.5MG 3 ML NEBU. NEB SCH ×4 (08:00→19:38)
[2019-11-12] MEDS ORDERED: MAGNESIUM SULFATE 2GM 50 ML IV ONE (08:00)
--- NOTE | 2019-11-12 08:39 | RAD ---
Examination: Bilateral Lower Extremity Venous Doppler Ultrasound History: Bilateral lower extremity pain, edema Comparison: None Procedure: Lang scale, color flow 2D and spectal waveform analysis images are obtained with and without compression in the area of the common femoral vein, superficial femoral vein - femoral vein junction, main femoral vein (superficial femoral vein) and popliteal vein. Veins of the proximal calf are also imaged. Findings: There is normal duplex flow, color flow and compressibility of all visualized vein segments. No evidence of deep venous thrombus is present. There is phasic waveforms in the visualized lower extremity veins probably due to congestive heart failure. Impression: No evidence of DVT in the visualized bilateral lower extremity venous system. Electronically signed by: Galdino Goyal MD (11/12/2019 8:36 AM) [id number]
--- NOTE | 2019-11-12 09:32 | HP ---
ADMIT DATE: 11/11/2019 ATTENDING PHYSICIAN: Dr. Malin. CHIEF COMPLAINT: Shortness of breath. HISTORY OF PRESENT ILLNESS: The patient is a 59-year-old female with multiple medical issues. She presented with a 2-day history of sinus congestion and difficulty breathing. She continued to smoke daily. She also has a component of congestive heart failure. Chest x-ray showed patchy infiltrates and perihilar infiltrates consistent with volume overload. She has had no high fevers or chills. Nevertheless, the COVID-19 coronavirus swab was performed. We are waiting on the results. CT is pending. In any event, she was admitted for observation. We also found a diminished hemoglobin of 6.8 g/dL with microcytic indices. She had 1 unit of blood ordered. PAST MEDICAL HISTORY: Significant for anemia, anxiety, degenerative arthritis, bronchitis, COPD, old stroke, type 2 diabetes, fibromyalgia, gastroesophageal reflux disease, hyperlipidemia, hypertension, irritable bowel syndrome, interstitial lung disease, migraine, pneumonia, seizures and stroke. PAST SURGICAL HISTORY: Hysterectomy. SOCIAL HISTORY: Smoking history, 1 to 1-1/2 packs of cigarettes daily. No alcohol use. FAMILY HISTORY: Noncontributory. CURRENT MEDICINES: Reviewed. She takes albuterol, amitriptyline, aspirin, budesonide, Celebrex, cetirizine, cholecalciferol, clonazepam, Voltaren, Trulicity, estradiol, estrogens, Prozac, Lasix, Neurontin, lorazepam, Asacol, metformin, metronidazole, Singulair, morphine, Protonix, tizanidine and MiraLax. ALLERGIES: She has multiple allergies including the following: AZITHROMYCIN, BISACODYL, COREG, CEPHALEXIN, CIPROFLOXACIN, DULOXETINE, FLUCONAZOLE, HYDROCHLOROTHIAZIDE, LOSARTAN, NEBIVOLOL, NITROFURANTOIN, NYSTATIN, POTASSIUM, PRAVASTATIN, SULFAMETHOXAZOLE AND TRIMETHOPRIM. REVIEW OF SYSTEMS: Significant for sinus congestion, low-grade fevers. She has significant trouble sleeping at night, lying down. She has been drinking a lot of water. No recent travel. She continues to smoke. She has underlying anxiety and depression. All other systems reviewed and turned to be negative. PHYSICAL EXAMINATION: GENERAL: When I saw her, this is a pleasant female, alert. INITIAL VITAL SIGNS: Showed a temperature of 99.0 degrees Fahrenheit, blood pressure 150/69, oxygen saturation 96% on 2 liters, and BP was 178/80. HEENT: Head is without trauma. Pupils are reactive. ___. NECK: Supple, no bruits identified. LUNGS: Otherwise clear. Good breath sounds, minimal rhonchi at bases. CARDIOVASCULAR: Showed distant heart tones. No gallops. ABDOMEN: Soft, scaphoid, nontender, no organomegaly. Bowel sounds are hypoactive. EXTREMITIES: Show no cyanosis or edema. NEUROLOGIC: Focally intact. Speech is fluent. PERTINENT LABORATORY STUDIES: Hemoglobin on admission was 6.7 g/dL with white count of 16,800. The MCV is 64 suggesting microcytic indices. Chemistry panel: Sodium 131, potassium 3.9 mEq, creatinine is 1.3 mg/dL, nonfasting blood sugar 165 mg/dL. BNP was 1080. Cardiac enzymes negative for coronary ischemia. ASSESSMENT: 1. A 59-year-old female with dyspnea, probably related to cardiac issues. 2. Patchy infiltrates consistent with congestive heart failure. 3. Symptomatic anemia, 6.7 grams of hemoglobin. 4. Depression with anxiety. 5. History of chronic facial swelling. 6. Aggravation of allergic rhinitis. PLAN: 1. Transfusion of 1 unit of packed red cells and increased oxygen carrying capacity in this symptomatic patient. 2. CT of the chest has been ordered and is pending. 3. I would recommend that she discontinue the Voltaren as it can cause GI bleeding and hence her chronic anemia. 4. Continue home meds. 5. If the CT of the chest is unremarkable, she can go home later today. 6. Follow up on the COVID-19 coronavirus swab, can be done as an outpatient. SRAVANTHI MALIN MD DR: DENITA/kalani JOB#: [id number] / [id number]
--- NOTE | 2019-11-12 09:51 | RAD ---
Examination: CT ANGIOGRAPHY CHEST History: Dyspnea Comparison/Correlation: 10/31/2004 CT chest with contrast Findings: Axial images of the chest were obtained following IV contrast and a pulmonary arteriography protocol. Sagittal and coronal reformatted images were provided. Maximum intensity projection images were provided. Pulmonary arterial vasculature is normal with no thromboembolic disease. Right lower hilar lymph node measuring 1.9 cm x 1.1 cm and is present. Left hilar lymph node measuring 1.3 cm x 0.8 cm present. Additional smaller nonenlarged superior sagittal lymph nodes are present. Centrilobular emphysematous involvement of the lung carcamo is noted. Extensive patchy subpleural groundglass infiltrates are present bilaterally. No pneumothorax. Very small left pleural effusion is present. Partially visualized upper abdomen is unremarkable. The visualized aorta is unremarkable. Bony structures are unremarkable. Impression: No pulmonary arterial thromboembolic disease. Extensive groundglass subpleural infiltrates typical for COVID 19. Other viral or other infectious etiology is not necessarily excluded. Enlarged right hilar lymph node. Other superior mediastinal and left hilar lymph nodes are also present and are borderline are not enlarged. These may represent infectious or inflammatory process. Interval follow-up should be considered to assess stability or resolution as more significant process is not excluded. Centrilobular emphysema. Results discussed with the patient's nurse Jorge Casanova on November 12, 2019 9:44 AM. PQRS Compliance Statement: One or more of the following individualized dose reduction techniques were utilized for this examination: 1. Automated exposure control 2. Adjustment of the mA and/or kV according to patient size 3. Use of iterative reconstruction technique Electronically signed by: Curry Zhang MD (11/12/2019 9:48 AM) [id number]
[2019-11-12] MEDS ORDERED: MESALAMINE PO PRN (10:45)
[2019-11-12] MEDS ORDERED: POLYETHYLENE GLYCOL 3350 17 GM PACKET. PO PRN (10:45)
[2019-11-12] MEDS ORDERED: NON FORMULARY ITEM (Dulaglutide (Trulicity) 1.5 MG) SQ PRN (10:45)
[2019-11-12] MEDS ORDERED: METOCLOPRAMIDE 5 MG TABLET PO SCH (11:30)
[2019-11-12] MEDS ORDERED: GABAPENTIN 300 MG CAPSULE. PO SCH (11:30)
[2019-11-12] MEDS: NALTREXONE PO SCH (11:49)
[2019-11-12] MEDS: MORPHINE SULFATE PO SCH (11:49)
[2019-11-12] MEDS: HYDROXYCHLOROQUINE 200 MG TABLET PO SCH ×2 (11:50→20:36)
[2019-11-12] MEDS: LORazepam 1 MG TABLET PO SCH (11:54)
[2019-11-12] MEDS: ASPIRIN CHEWABLE 81 MG TABLET. PO SCH (11:54)
[2019-11-12] MEDS: FUROSEMIDE 20 MG TABLET PO SCH (11:55)
[2019-11-12] MEDS: ESTRADIOL 1 MG TABLET PO SCH (11:56)
[2019-11-12] MEDS: PANTOPRAZOLE 40 MG TABLET. PO SCH (11:56)
[2019-11-12] MEDS: FLUoxetine HCL 20 MG CAPSULE PO SCH (11:56)
[2019-11-12] MEDS: CETIRIZINE HCL 10 MG TABLET PO SCH (11:56)
[2019-11-12] MEDS ORDERED: AZITHROMYCIN 250 MG TABLET. PO ONE (13:00)
[2019-11-12] MEDS ORDERED: HYDROcodone/CHLORPHEN POLIS 5 ML SUS.ER.12H PO PRN (13:00)
[2019-11-12] MEDS: METOCLOPRAMIDE 5 MG TABLET PO SCH ×2 (13:39→16:04)
[2019-11-12] MEDS: tiZANidine 4 MG TABLET. PO SCH ×2 (13:39→20:35)
[2019-11-12] MEDS: GABAPENTIN 300 MG CAPSULE. PO SCH ×2 (14:00→20:34)
[2019-11-12] MEDS ORDERED: hydrALAZINE 20 MG/ML VIAL. IV PRN (14:50)
[2019-11-12] MEDS ORDERED: FUROSEMIDE 40 MG/4 ML VIAL IVP ONE (14:50)
[2019-11-12] MEDS: LISINOPRIL 20 MG TABLET PO SCH ×2 (14:55→16:05)
[2019-11-12] MEDS ORDERED: ALBUTEROL SULFATE 8GM INHALER. INH PRN (16:45)
[2019-11-12] MEDS: FORMOTEROL FUMARATE INH SCH (20:34)
[2019-11-12] MEDS: BUDESONIDE INH SCH (20:34)
[2019-11-12] MEDS: PSEUDOEPHEDRINE ER 120 MG TABLET.ER. PO SCH (20:35)
[2019-11-12] MEDS ORDERED: MONTELUKAST 10 MG TABLET. PO SCH (21:00)
[2019-11-12] MEDS ORDERED: NON FORMULARY ITEM (Icosapent Ethyl (Vascepa) 2 GM) PO SCH (21:00)
[2019-11-12] MEDS ORDERED: clonazePAM 1 MG TABLET PO SCH (21:00)
[2019-11-12] MEDS ORDERED: AMITRIPTYLINE HCL 10 MG TABLET PO SCH (21:00)
[2019-11-13 04:57] VITALS: BP 117/60
[2019-11-13] MEDS: ESTRADIOL 1 MG TABLET PO SCH (08:21)
[2019-11-13] MEDS: METOCLOPRAMIDE 5 MG TABLET PO SCH ×2 (08:21→12:17)
[2019-11-13] MEDS: LORazepam 1 MG TABLET PO SCH (08:21)
[2019-11-13] MEDS: FLUoxetine HCL 20 MG CAPSULE PO SCH (08:22)
[2019-11-13] MEDS: GABAPENTIN 300 MG CAPSULE. PO SCH (08:22)
[2019-11-13] MEDS: PANTOPRAZOLE 40 MG TABLET. PO SCH (08:22)
[2019-11-13] MEDS: ASPIRIN CHEWABLE 81 MG TABLET. PO SCH (08:22)
[2019-11-13] MEDS: LISINOPRIL 20 MG TABLET PO SCH (08:23)
[2019-11-13] MEDS: CETIRIZINE HCL 10 MG TABLET PO SCH (08:24)
[2019-11-13] MEDS: tiZANidine 4 MG TABLET. PO SCH (08:24)
[2019-11-13] MEDS: FUROSEMIDE 20 MG TABLET PO SCH (08:24)
[2019-11-13] MEDS: PSEUDOEPHEDRINE ER 120 MG TABLET.ER. PO SCH (08:25)
[2019-11-13] MEDS ORDERED: HYDROXYCHLOROQUINE (PROGRAM) 200 MG TABLET PO SCH (09:00)
[2019-11-13] MEDS: MORPHINE SULFATE PO SCH (09:00)
[2019-11-13] MEDS ORDERED: AZITHROMYCIN 250 MG TABLET. PO SCH (09:00)
[2019-11-13] MEDS: NALTREXONE PO SCH (09:00)
--- NOTE | 2019-11-13 09:19 | PDOC ---
CARDIO Progress Notes Date & Time Date of Service DATE: 11/13/19 TIME: 09:17 Time of Evaluation 09:17 Subjective Notes Breathing, cough improved. Wanting to go home Vitals Vitals Vital Signs Date Time Temp Pulse Resp B/P (MAP) Pulse Ox O2 Delivery O2 Flow Rate FiO2 11/13/19 08:23 94 117/60 11/13/19 04:57 98.7 18 95 Nasal Cannula 2.0 Weight Weight [ ] Input and Output I.O. Intake and Output 11/13/19 07:00 Intake Total 1020 ml Balance 1020 ml Intake Oral 1020 ml # Voids 2 Laboratory Labs Laboratory Tests Test 11/11/19 17:45 11/11/19 18:45 11/11/19 21:05 11/12/19 05:45 White Blood Count 16.8 x10^3/uL (4.0-11.0) 15.9 x10^3/uL (4.0-11.0) Red Blood Count 3.50 x10^6/uL (3.50-5.40) 3.93 x10^6/uL (3.50-5.40) Hemoglobin 6.7 g/dL (12.0-15.5) 8.0 g/dL (12.0-15.5) Hematocrit 22.5 % (36.0-47.0) 26.0 % (36.0-47.0) Mean Corpuscular Volume 64 fL (79-100) 66 fL (79-100) Mean Corpuscular Hemoglobin 19 pg (25-35) 20 pg (25-35) Mean Corpuscular Hemoglobin Concent 30 g/dL (31-37) 31 g/dL (31-37) Red Cell Distribution Width 19.1 % (11.5-14.5) 20.8 % (11.5-14.5) Platelet Count 346 x10^3/uL (140-400) 337 x10^3/uL (140-400) Neutrophils (%) (Auto) 82 % (31-73) 82 % (31-73) Lymphocytes (%) (Auto) 11 % (24-48) 10 % (24-48) Monocytes (%) (Auto) 6 % (0-9) 6 % (0-9) Eosinophils (%) (Auto) 0 % (0-3) 1 % (0-3) Basophils (%) (Auto) 1 % (0-3) 1 % (0-3) Neutrophils # (Auto) 13.8 x10^3uL (1.8-7.7) 12.9 x10^3uL (1.8-7.7) Lymphocytes # (Auto) 1.8 x10^3/uL (1.0-4.8) 1.7 x10^3/uL (1.0-4.8) Monocytes # (Auto) 1.0 x10^3/uL (0.0-1.1) 1.0 x10^3/uL (0.0-1.1) Eosinophils # (Auto) 0.1 x10^3/uL (0.0-0.7) 0.2 x10^3/uL (0.0-0.7) Basophils # (Auto) 0.1 x10^3/uL (0.0-0.2) 0.1 x10^3/uL (0.0-0.2) Segmented Neutrophils % 66 % (35-66) Band Neutrophils % 16 % (0-9) Lymphocytes % 7 % (24-48) Monocytes % 11 % (0-10) Platelet Estimate Adequate (ADEQUATE) Polychromasia Present Hypochromasia Mod Anisocytosis Present Microcytosis Present Target Cells Present Tear Drop Cells Present Ovalocytes Present Absolute Reticulocyte Count 0.083 x10^6/uL (0.020-0.120) Percent Reticulocyte Count 2.4 % (0.5-2.3) Immature Reticulocyte Fraction 0.57 (0.20-0.60) Prothrombin Time 10.3 SEC (9.4-11.4) Prothromb Time International Ratio 1.0 (0.9-1.1) Activated Partial Thromboplast Time 30 SEC (23-33) D-Dimer (Breanna) 1.37 mg/L (0.00-0.50) Sodium Level 131 mmol/L (136-145) 136 mmol/L (136-145) Potassium Level 3.9 mmol/L (3.5-5.1) 4.0 mmol/L (3.5-5.1) Chloride Level 94 mmol/L (98-107) 99 mmol/L (98-107) Carbon Dioxide Level 24 mmol/L (21-32) 27 mmol/L (21-32) Anion Gap 13 (6-14) 10 (6-14) Blood Urea Nitrogen 14 mg/dL (7-20) 9 mg/dL (7-20) Creatinine 1.3 mg/dL (0.6-1.0) 1.0 mg/dL (0.6-1.0) Estimated GFR (Cockcroft-Gault) 41.6 56.4 Glucose Level 165 mg/dL (70-99) 153 mg/dL (70-99) Calcium Level 8.7 mg/dL (8.5-10.1) 9.3 mg/dL (8.5-10.1) Magnesium Level 1.6 mg/dL (1.8-2.4) Total Bilirubin 0.5 mg/dL (0.2-1.0) Direct Bilirubin 0.2 mg/dL (0.0-0.2) Aspartate Amino Transf (AST/SGOT) 24 U/L (15-37) Alanine Aminotransferase (ALT/SGPT) 29 U/L (14-59) Alkaline Phosphatase 117 U/L (46-116) Creatine Kinase 100 U/L (26-192) Troponin I Quantitative < 0.017 ng/mL (0-0.055) ZL-Luc-L-Type Natriuretic Peptide 1080 pg/mL (0-124) Total Protein 7.3 g/dL (6.4-8.2) Albumin 3.1 g/dL (3.4-5.0) Urine Opiates Screen Pos (NEG) Urine Methadone Screen Neg (NEG) Urine Barbiturates Neg (NEG) Urine Phencyclidine Screen Neg (NEG) Urine Amphetamine/Methamphetamine Neg (NEG) Urine Benzodiazepines Screen Neg (NEG) Urine Cocaine Screen Neg (NEG) Urine Cannabinoids Screen Neg (NEG) Urine Ethyl Alcohol Neg (NEG) Coronavirus (COVID-19)(PCR) See separate report Microbiology Micro Microbiology 11/11/19 Blood Culture - Preliminary, Resulted NO GROWTH AFTER 1 DAY... Physical Exams HEENT: Neck Supple W Full Motion Chest: Symmetric Lungs: Other (diminished ) Heart: S1S2, RRR Abdomen: Soft N/T Extremities: No Edema Neurology: alert, oriented, follow commands Assessment Assessment 1. Dyspnea, cough, PNA. CTA with infiltrates concerning for COVID. COVID testing negative. improved 2. Anemia; s/p transfusion 3. Mild acute on chronic probable diastolic CHF. Previously following with [facility], but has not been since since 2017 per chart review. 4. Hyperlipidemia 5. Hypertension; now controlled 6. STEVO; improved 7. Tobaccoism 8. PAFIB; brief bursts of AFIB noted on tele Recommendations Start on low-dose metoprolol for rate control ASA therapy Outpatient event monitor to guide therapy and echo to assess LV systolic function. (Patient would like these conducted through ) Follow up with primary clinical sociologist with [facility] IVONNE PERRY APRN Nov 13, 2019 09:19
[2019-11-13] MEDS ORDERED: METOPROLOL TART IMMED RELEASE 25 MG TABLET PO SCH (09:30)
[2019-11-13] MEDS: BUDESONIDE INH SCH (09:30)
[2019-11-13] MEDS: FORMOTEROL FUMARATE INH SCH (09:30)
[2019-11-13 10:30] VITALS: BP 114/62
[2019-11-13] MEDS ORDERED: AZIT250T PO (12:42)
[2019-11-13] MEDS ORDERED: HYDR200T71 PO (12:42)
[2019-11-13] MEDS ORDERED: ASCO500C PO (12:43)
[2019-11-13] MEDS ORDERED: FERR325T14 PO (12:43)
--- NOTE | 2019-11-13 13:05 | DISCH ---
HOME HEALTH DISCHARGE/MEDS DISCHARGE INFORMATION: Discharge Date: Nov 13, 2019 Final Diagnosis: Problems Medical Problems: (1) Cough Status: Acute (2) Pneumonia Status: Acute Condition on Discharge: Stable CODE STATUS: Code Status: Full HOME HEALTH: Face to Face: I certify this patient is under my care and that I, or a nurse practitioner or physician's registered nurse first assistant working with me, had a face to face encounter that meets the physician face to face encounter requirements with this patient on 11/13/19 Medical Condition(s): Pneumonia Halfway For: Admin/Educate Injections Physical Therapy For: Evalulation/Treatment Occupational Therapy For: Evaluation/Treatment Homebound Status Met By: Unsteady balance w/ amb, POST DISCHARGE ORDERS: Activity Instructions for Disc: Resume previous activity DIET AFTER DISCHARGE: ADA CERTIFICATION STATEMENT: Certification Statement: Based on the above finding, I certify that this patient is confined to the home and needs intermittent halfway care, physical therapy and/or speech therapy, or continues to need occupational therapy.~ This patient is under my care, and I have initiated the establishment of the plan of care.~ This patient will be followed by myself or a community physician who will periodically review the plan of care. DISCHARGE MEDICATIONS: Home Meds Active Scripts Ascorbic Acid (VITAMIN C) 500 Mg Capsule.er, 1 CAP PO BID for anemia for 30 Days, #60 CAP 0 Refills Prov:SARAH MCMANUS MD 11/13/19 Ferrous Sulfate (FERROUS SULFATE) 325 Mg Tablet, 1 TAB PO BID for anemia for 30 Days, #60 TAB 3 Refills Prov:SARAH MCMANUS MD 11/13/19 Hydroxychloroquine Sulfate (PLAQUENIL) 200 Mg Tablet, 1 TAB PO BID for covid 19 for 3 Days, #6 TAB 0 Refills Prov:SARAH MCMANUS MD 11/13/19 Azithromycin (ZITHROMAX) 250 Mg Tablet, 250 MG PO DAILY for ANTI-BIOTIC for 3 Days, #3 TAB 0 Refills Prov:SARAH MCMANUS MD 11/13/19 Reported Medications Estrogens, Conjugated (PREMARIN) 30 Gm Cream.appl, 0.5 GM VG TWICE WEEKLY for H ORMONE REPLACEMENT, #45 GM 11 Refills 11/11/19 Dulaglutide (Trulicity) 1.5 Mg/0.5 Ml Pen.injctr, 1.5 MG SQ PRN PRN for ., EACH 11/11/19 Nitroglycerin (NITROSTAT) 0.4 Mg Tab.subl, 1 TAB SL UD PRN for CHEST PAIN, #100 TAB 3 Refills 06/20/17 Fluoxetine Hcl (PROZAC) 20 Mg Capsule, 1 CAP PO DAILYWBKFT, #30 CAP 1 Refill 06/20/17 Cholecalciferol (Vitamin D3) (VITAMIN D3) 5,000 Unit Tablet, 1 TAB PO DAILY, #30 TAB 06/20/17 Polyethylene Glycol 3350 (MIRALAX) 17 Gm Powd.pack, 1 PACKET PO DAILY PRN for CONSTIPATION, #30 PACKET 3 Refills 06/20/17 Aspirin (ASPIRIN) 81 Mg Tab.chew, 81 MG PO DAILY, TAB 06/20/17 Diclofenac Sodium (VOLTAREN) 100 Gm Gel..gram., 1 GM TP TID, #100 GM 2 Refills 06/20/17 Metformin Hcl (METFORMIN HCL) 500 Mg Tablet, 1 TAB PO DAILY, #60 TAB 3 Refills 06/20/17 Tizanidine Hcl (TIZANIDINE HCL) 4 Mg Tablet, 4 MG PO TID, TAB 06/20/17 Budesonide/Formoterol Fumarate (SYMBICORT 80-4.5 MCG INHALER) 10.2 Gm Hfa.aer.ad, 1 PUFF IH DAILY, #10.2 GM 5 Refills 06/20/17 Cetirizine Hcl (CETIRIZINE HCL) 10 Mg Tablet, 1 TAB PO DAILY, #30 TAB 5 Refills 06/20/17 Mesalamine (APRISO) 0.375 Gm Cap.er.24h, 1 CAP PO PRN BID PRN for ., #120 CAP 3 Refills 06/20/17 Pantoprazole Sodium (PANTOPRAZOLE SODIUM) 40 Mg Tablet.dr, 1 TAB PO DAILY, #30 TAB 3 Refills 06/20/17 Celecoxib (CELEBREX) 200 Mg Capsule, 1 CAP PO BID, #30 CAP 2 Refills 06/20/17 Montelukast Sodium (SINGULAIR TABLET ) 10 Mg Tablet, 10 MG PO HS for FOR ASTHMA, #30 TAB 0 Refills 06/20/17 Icosapent Ethyl (VASCEPA) 1 Gm Capsule, 2 GM PO BID, CAP 06/20/17 Estradiol (ESTRADIOL) 0.5 Mg Tablet, 1 TAB PO DAILY, #30 TAB 11 Refills 06/20/17 Metoclopramide Hcl (REGLAN) 10 Mg Tablet, 1 TAB PO TIDAC for SLOW DIGESTION 06/20/17 Clonazepam (CLONAZEPAM) 1 Mg Tablet, 2 TAB PO QHS for sleep, #30 TAB 06/20/17 Amitriptyline Hcl (AMITRIPTYLINE HCL) 10 Mg Tablet, 3 TAB PO QHS, #30 TAB 1 Refill 06/20/17 Gabapentin (GABAPENTIN ) 300 Mg Capsule, 300 MG PO TID for NERVE PAIN 06/20/17 Lorazepam (ATIVAN) 1 Mg Tablet, 1 TAB PO DAILY, #90 TAB 06/20/17 Furosemide (FUROSEMIDE) 20 Mg Tablet, 10 MG PO DAILY for diuretic, #90 TAB 1 Refill 06/20/17 Morphine Sulfate/Naltrexone (Embeda ER 100-4 mg Capsule) 1 Each Cap.er.po, 1 EACH PO DAILY, CAP.SR 06/20/17 Discontinued Reported Medications Albuterol Sulfate (PROAIR HFA INHALER) 8.5 Gm Hfa.aer.ad, 1 PUFF INH PRN Q8HRS PRN for SHORTNESS OF BREATH, INHALER 0 Refills 06/20/17 Estrogens, Conjugated (PREMARIN) 0.45 Mg Tablet, 0.45 MG PO WEEKLY for hormone replacement, TAB 11/11/19 SARAH MCMANUS MD Nov 13, 2019 13:05
--- NOTE | 2019-11-14 00:33 | DS ---
DATE OF DISCHARGE: 11/13/2019 HOSPITAL COURSE: The patient is a 59-year-old female patient who was admitted with multiple medical problems. She presented with a 2-day history of sinus congestion and difficulty breathing. She continued to smoke daily. She also has a component of congestive heart failure. Chest x-ray showed patchy infiltrate and perihilar infiltrate consistent with volume overload. She has had no high fever or chills. Never tested COVID-19, coronavirus swab was performed. Apparently, she was given treatment that caused swelling of her tongue and throat and therefore she came to the Emergency Room for further evaluation and treatment. The nature of the antibiotic that was given to her by Dr. Damaris Horn is not clear to us and she was therefore evaluated in the Emergency Room. Her lab work showed that she had leukocytosis with a white cell count of 16,800; however, she was found to have microcytic hypochromic anemia with hemoglobin of 6.7 and hematocrit 22.5. She has also an elevated D-dimer. Her chemistry showed she had hyponatremia and slight dehydration, hyperglycemia and hypomagnesemia and her toxic screen was positive for opiates, but negative for other drugs and her COVID-19 by PCR was negative; however, CT angio of the chest showed that there is no thromboembolic disease. She has right lower hilar lymph node measuring 1.9 x 1.1 cm and there is presence of left hilar lymph node measuring 1.3 x 0.8 cm. Additional smaller nonenlarged superior sagittal lymph nodes are present. She has centrilobular emphysematous involvement of the lung carcamo noted, extensive patchy subpleural ground glass infiltrates are present bilaterally, no pneumothorax, very small left pleural effusion is present, partially visualized. Upper abdomen is unremarkable, visualized aorta is unremarkable, bony structures unremarkable. The impression is that the patient has no pulmonary arterial thromboembolic disease; however, she has extensive ground glass subpleural infiltrate typical for COVID-19, other viral or other infectious etiologies not necessarily excluded. Enlarged right hilar lymph node, other superior mediastinal and left hilar lymph nodes are also present and are borderline. These may represent infectious inflammatory process. Interval followup should be considered to assess stability or resolution of more significant process is not excluded. She has centrilobular emphysema. The patient was admitted and was started on azithromycin as well as hydroxychloroquine. The patient was basically insisting that she wants to go home. She did receive 1 unit of packed RBCs and her H and H have risen from 6.7 and 22.5 to 8 and 26. I tried to persuade her to stay 1 more day to give her Venofer; however, she is adamant she wants to go home and therefore a decision was made to discharge her home to finish a course of Zithromax and hydroxychloroquine and also with a prescription for ferrous sulfate and ascorbic acid. PAST MEDICAL HISTORY: Significant for anxiety, chronic microcytic hypochromic anemia, degenerative arthritis, COPD, has had a history of cerebrovascular accident, type 2 diabetes mellitus, fibromyalgia, gastroesophageal reflux disease, hyperlipidemia, hypertension, irritable bowel syndrome, interstitial lung disease, migraine, pneumonia and seizures. PAST SURGICAL HISTORY: Significant for total abdominal hysterectomy, multiple teeth extractions and right hip surgery. ALLERGIES: THE PATIENT HAS AN EXTENSIVE LIST OF ALLERGIES INCLUDING ____, BISACODYL, CARVEDILOL, CEPHALEXIN, CIPROFLOXACIN, DULOXETINE, FLUCONAZOLE, FLUTICASONE, HYDROCHLOROTHIAZIDE, LOSARTAN AND NEBIVOLOL. CURRENT MEDICATIONS: She is currently on following medications: She is on cetirizine 10 mg once a day, tizanidine 4 mg 3 times a day, Vascepa 2 grams twice a day, nitroglycerin 0.4 mg sublingually every 5 minutes x 3, aspirin 81 mg once a day, Celebrex 200 mg twice a day, diclofenac sodium 100 grams gel for Voltaren 1 gram 3 times a day. She is on Embeda Extended Release 100/4 mg capsule 1 capsule daily. She is on benzodiazepine; clonazepam 1 mg tablet, she takes 2 tablets at bedtime. She is on gabapentin 300 mg 3 times a day; amitriptyline 10 mg, she takes 3 tablets at bedtime; fluoxetine for Prozac 20 mg daily, lorazepam 1 mg daily, furosemide 10 mg once a day. She is on Symbicort 80/4.5 mcg inhaler 1 puff daily. She is on montelukast sodium 10 mg for Singulair at bedtime, polyethylene glycol 17 grams daily. She is on Protonix 40 mg daily, metoclopramide 10 mg 3 times a day before meals, mesalamine for Apriso 0.375 grams p.o. b.i.d. and estradiol 0.5 mg daily, estrogen conjugated for Premarin 0.5 grams vaginally twice weekly, metformin 500 mg once a day. She is on Trulicity 1.5 mg subcutaneously once a day and vitamin D 5000 units p.o. daily. FAMILY HISTORY: She has one brother who is older and healthy. Her sister is younger who has COPD. Her mother is still alive at age of 86 and has hypertension and diabetes. Her father at the age of 60, the cause of is not known. SOCIAL HISTORY: She is , has a daughter and a son. She continued to smoke and vape. She does not drink alcohol. 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 REVIEW OF SYSTEMS: As per history of present illness. PHYSICAL EXAMINATION: GENERAL: When I saw her today, she was resting slightly propped up in bed, in no apparent distress. She was pale, but no jaundice, cyanosis or thyromegaly. No jugular venous distention. No lower limb edema. VITAL SIGNS: Her heart rate was 93, blood pressure 114/62, temperature was 98.1, respiratory rate was 20, and oxygen saturation was 92% on room air. HEAD, EYES, EARS, NOSE AND THROAT: Showed normocephalic, atraumatic. NECK: Supple. HEART: Showed normal first and second heart sounds. No gallop or murmur. CHEST: Clear to auscultation. No crepitation or rhonchi. ABDOMEN: Distended, soft, nontender. NEUROLOGIC: She is awake, alert, responding appropriately. All cranial nerves intact. EXTREMITIES: She moves extremities without difficulty. She ambulates without assistance or assistive devices. LABORATORY DATA: Her lab work this morning showed a white cell count of 15,900, hemoglobin 8, hematocrit 26, MCV 66 and platelet count of 337,000. Her serum sodium was 136, potassium 4, chloride 99, bicarbonate 27, anion gap of 10, BUN 9, creatinine 1, estimated GFR was 56 mL per minute. Her glucose was 153, calcium was 9.3. Her prothrombin time was 10.3, INR 1, aPTT was 30 and D-dimer was 1.37. Her toxic screen was positive for opiates, negative for other drugs and her COVID-19 by PCR was negative; however, clinically she seemed to be positive for coronavirus pneumonia. DISCHARGE MEDICATIONS: The patient will be discharged home to continue on azithromycin 250 mg daily for 3 more days, hydroxychloroquine for Plaquenil 200 mg twice a day for 3 more days. She was also discharged on ferrous sulfate 325 mg twice a day with meals and ascorbic acid 500 mg twice a day. She was discharged also on amitriptyline 10 mg to take 3 tablets at bedtime, aspirin 81 mg once a day, Symbicort 80/4.5 one puff once a day. She is on Celebrex 200 mg twice a day, cetirizine 10 mg once a day, cholecalciferol vitamin D3 5000 units once a day; clonazepam 1 mg, she takes 2 tablets at bedtime for sleep; diclofenac sodium for Voltaren gel 1 gram 3 times a day, Trulicity 1.5 mg in 0.5 mL subcutaneously daily, estradiol 0.5 mg tablet once a day, conjugated estrogen 0.5 gram vaginally twice weekly, Prozac 20 mg daily, furosemide 10 mg once a day, gabapentin 300 mg 3 times a day, she is on Vascepa 2 grams twice a day, lorazepam for Ativan 1 mg daily, mesalamine 0.375 grams p.o. b.i.d., metformin 500 mg once a day, metoclopramide 10 mg 3 times a day before meals, montelukast sodium 10 mg at bedtime, morphine sulfate/naltrexone for Embeda ER 100/4 mg once a day, nitroglycerin 0.4 mg sublingually every 5 minutes x 3, Protonix 40 mg once a day, polyethylene glycol 17 grams daily, tizanidine 4 mg 3 times a day. FINAL DISCHARGE DIAGNOSES: 1. COVID-19 pneumonia. 2. Severe microcytic hypochromic anemia consistent with iron deficiency anemia requiring 1 unit of packed RBCs. She has a multitude of other medical problems including type 2 diabetes, chronic obstructive pulmonary disease, hypertension, hyperlipidemia. The patient said that she did have upper and lower gastrointestinal endoscopy before without any obvious source of bleeding; however, she is on Celebrex, and I recommended that she should discontinue Celebrex for the time as she is probably bleeding from her gastrointestinal tract and she should follow with her primary care physician. SARAH MCMANUS MD DR: SHABNAM/kalani JOB#: [id number] / [id number]
[2019-11-14] MEDS ORDERED: metFORMIN 500 MG TABLET PO SCH (08:00)
== END 2019-11-13 13:55 | disposition home health service (06) | DRG 177 ==
LOC: ER 17:29 → ICU 21:00 → 1 SOUTH 22:24
PROVIDERS: ADMIT Internal Medicine; ATTEND Hospitalist
PROC: 30233N1 Transfusion of Nonautologous Red Blood Cells into Peripheral Vein, Percutaneous Approach (ICD-10-PCS; principal; 2019-11-12)
DX: U07.1 COVID-19 (principal); J12.89 Other viral pneumonia; N17.9 Acute kidney failure, unspecified; E87.1 Hypo-osmolality and hyponatremia; B37.9 Candidiasis, unspecified; E11.65 Type 2 diabetes mellitus with hyperglycemia; D50.9 Iron deficiency anemia, unspecified; E78.00 Pure hypercholesterolemia, unspecified; E78.5 Hyperlipidemia, unspecified; E83.42 Hypomagnesemia; F17.210 Nicotine dependence, cigarettes, uncomplicated; F41.8 Other specified anxiety disorders; I11.0 Hypertensive heart disease with heart failure; I48.0 Paroxysmal atrial fibrillation; J30.9 Allergic rhinitis, unspecified; J43.2 Centrilobular emphysema; M45.9 Ankylosing spondylitis of unspecified sites in spine; M79.7 Fibromyalgia; Z82.49 Family history of ischemic heart disease and other diseases of the circulatory system; Z82.5 Family history of asthma and other chronic lower respiratory diseases; Z83.3 Family history of diabetes mellitus; Z86.73 Personal history of transient ischemic attack (TIA), and cerebral infarction without residual deficits; Z88.1 Allergy status to other antibiotic agents; Z90.710 Acquired absence of both cervix and uterus; F32.9 Major depressive disorder, single episode, unspecified; G43.909 Migraine, unspecified, not intractable, without status migrainosus; G62.9 Polyneuropathy, unspecified; K21.9 Gastro-esophageal reflux disease without esophagitis; K58.9 Irritable bowel syndrome, unspecified; M19.90 Unspecified osteoarthritis, unspecified site; I50.9 Heart failure, unspecified; Z79.4 Long term (current) use of insulin
CPT/HCPCS: 36415; 71046; 71275; 80048; 80076; 80307; 82550; 82947; 83735; 83880; 84145; 84484; 85007; 85025; 85045; 85379; 85610; 85730; 86850; 86900; 86901; 86920; 87040; 87635; 93005; 93970; 96361; 96372; 96374; J0456; J1200; J1650; J1940; J3490; J7120; J7613; J8597; P9016; Q9967; 99285-25

== ENCOUNTER 2019-12-22 14:52 | Emergency (ER) | payer OTHER, MEDICAID ==
[~2019-12-22] VITALS: Ht 161.3 cm; Wt 98.1 kg
[~2019-12-22 14:52] MED LIST changes: +ASCO500C PO; +AZIT250T PO; +DULA1.5P SQ; +ESTR0.45 PO; +ESTR30CR VG; +FERR325T14 PO; +HYDR200T71 PO
--- NOTE | 2019-12-22 15:34 | EKG ---
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
[2019-12-22 15:59] LABS: CALCIUM 9.3 mg/dL (8.5-10.1); GFR 56.4
--- NOTE | 2019-12-22 16:01 | RAD ---
EXAM: PORTABLE CHEST 1V INDICATION: intermittent chest pain. TECHNIQUE: Single view COMPARISON: 11/11/2019 chest x-ray FINDINGS: The heart size is normal. The great vessels appear unremarkable. There is no hilar or mediastinal mass. The lungs show improved aeration with residual mild interstitial pulmonary vascular congestion. There is no pleural effusion or pneumothorax. There are no significant osseous abnormalities. IMPRESSION: Improved aeration of the lungs with mild residual pulmonary vascular congestion. Otherwise no active cardiopulmonary disease. Discussed with Dr. Warren by telephone at 3:58 PM 12/22/2019. Electronically signed by: Saud May MD (12/22/2019 3:58 PM) [facility] [place]
[2019-12-22 16:11] LABS: ALBUMIN 3.4 g/dL (3.4-5.0); ALBUMIN/GLOBULIN RATIO 0.8 (1.0-1.7); MAGNESIUM 1.6 mg/dL (1.8-2.4); TOTAL BILIRUBIN 0.2 mg/dL (0.2-1.0); TOTAL PROTEIN 7.8 g/dL (6.4-8.2)
[2019-12-22] MEDS ORDERED: MAGNESIUM SULFATE 2GM 50 ML IV ONE (16:30)
[2019-12-22 16:42] LABS: BILIRUBIN,URINE NEG (NEG); CLARITY,URINE CLEAR; COLOR,URINE STRAW; GLUCOSE,URINE NEG (NEG); NITRITE,URINE NEG (NEG); UROBILINOGEN,URINE 0.2 mg/dL (0.2 mg/dL)
[2019-12-22 16:43] LABS: BACTERIA,URINE FEW /HPF (0-FEW); RBC,URINE RARE /HPF (0-2); SQUAMOUS EPITHELIAL CELL,UR OCC /LPF; WBC,URINE RARE /HPF (0-4)
[2019-12-22 16:59] LABS: PLT ESTIMATE ADEQUATE (ADEQUATE)
[2019-12-22 17:00] LABS: ANISOCYTOSIS MARKED; HYPOCHROMIA MOD; MICROCYTOSIS MOD; OVALOCYTES OCC; POIKILOCYTOSIS SLIGHT
[2019-12-22 17:01] LABS: TARGET CELLS OCC; TOXIC GRANULATION SLIGHT
[2019-12-22 17:26] LABS: HEMATOCRIT 35.1 % (36.0-47.0); HEMOGLOBIN 11.1 g/dL (12.0-15.5); LYMPH % 25 % (24-48); MEAN CORPUSCULAR HEMOGLOBIN 24 pg (25-35); MEAN CORPUSCULAR HGB CONC 32 g/dL (31-37); MEAN CORPUSCULAR VOLUME 75 fL (79-100); MONO % 5 % (0-9); NEUT % 63 % (31-73); PLATELET COUNT 306 x10^3/uL (140-400); RED BLOOD COUNT 4.66 x10^6/uL (3.50-5.40); RED CELL DISTRIBUTION WIDTH 28.9 % (11.5-14.5); WHITE BLOOD COUNT 9.8 x10^3/uL (4.0-11.0)
[2019-12-22 17:27] LABS: BASO # 0.1 x10^3/uL (0.0-0.2); BASO % 1 % (0-3); EOS # 0.6 x10^3/uL (0.0-0.7); EOS % 6 % (0-3); LYMPH # 2.5 x10^3/uL (1.0-4.8); MONO # 0.5 x10^3/uL (0.0-1.1); NEUT # 6.2 x10^3uL (1.8-7.7)
[2019-12-22 17:49] VITALS: BP 169/85
--- NOTE | 2019-12-22 17:57 | PHYS DOC ---
Past History Past Medical History: Anemia, Anxiety, Arthritis, Bronchitis, COPD, CVA, Diabetes, Fibromyalgia, GERD, High Cholesterol, Hypertension, IBS, Lung Disease, Migraines, Pneumonia, Seizure, Stroke, TIA, Other Past Surgical History: Hysterectomy, Other Additional Past Surgical Histo: BONES SPUR REMOVAL FROM HIP Smoking: Greater than 1 pack/day Alcohol Use: None Drug Use: None General Adult EDM: Chief Complaint: HYPERTENSION HPI: HPI: Patient is a 59-year-old female who presented to ER today for evaluation of elevated blood pressure. Patient also has some intermittent episodes of chill, denies any cough or fever. Patient says she called her family doctor on Monday who put her on blood pressure medication. She has been on the blood pressure medication for 2 days. Patient denies any headache, no abdominal pain, no nausea vomiting. Patient says she weighed herself this morning and she gained 4 pounds and then later this afternoon she weighed herself again and she lost 2 pounds. Patient was admitted here on November 10 due to pneumonia. Patient says she got better, she was tested negative for COVID-19 Review of Systems: Review of Systems: Constitutional: Denies fever, POSITIVE chills Eyes: Denies change in visual acuity HENT: Denies nasal congestion or sore throat Respiratory: Denies cough or shortness of breath Cardiovascular: Denies chest pain or edema GI: Denies abdominal pain, nausea, vomiting, bloody stools or diarrhea : Denies dysuria Musculoskeletal: Denies back pain or joint pain Integument: Denies rash Neurologic: Denies headache, focal weakness or sensory changes Endocrine: Denies polyuria or polydipsia Lymphatic: Denies swollen glands Psychiatric: Denies depression or anxiety Heart Score: Risk Factors: Risk Factors: DM, Current or recent (<one month) smoker, HTN, HLP, family history of CAD, obesity. Risk Scores: Score 0 - 3: 2.5% MACE over next 6 weeks - Discharge Home Score 4 - 6: 20.3% MACE over next 6 weeks - Admit for Clinical Observation Score 7 - 10: 72.7% MACE over next 6 weeks - Early Invasive Strategies Current Medications: Current Meds: Current Medications Medications (Trade) Dose Ordered Sig/Chay Start Time Stop Time Status Last Admin Dose Admin Magnesium Sulfate 50 ml @ 25 mls/hr 1X ONCE 12/22/19 16:30 12/22/19 18:29 12/22/19 16:30 25 MLS/HR Allergies: Allergies: Allergies Coded Allergies Type Severity Reaction Last Updated Verified carvedilol Allergy Intermediate "made me sick" 06/23/17 Yes cephalexin Allergy Intermediate 11/11/19 Yes ciprofloxacin Allergy Intermediate 11/29/18 Yes duloxetine Allergy Intermediate MUSCLE ACHES 11/29/18 Yes fluconazole Allergy Intermediate 11/29/18 Yes nebivolol Allergy Intermediate 11/29/18 Yes nitrofurantoin Allergy Intermediate LEG ACHES 11/29/18 Yes nystatin Allergy Intermediate sores in mouth 11/29/18 Yes potassium chloride Allergy Intermediate "K DUR" 11/29/18 Yes pravastatin Allergy Intermediate unsteady on feet 11/29/18 Yes pregabalin Allergy Intermediate WORSENED FIBROMYALGIA 11/29/18 Yes sulfamethoxazole Allergy Intermediate 11/29/18 Yes trimethoprim Allergy Intermediate 11/29/18 Yes varenicline Allergy Intermediate NIGHT TERRORS 11/29/18 Yes azithromycin Allergy Mild yellow eyes 11/29/18 Yes bisacodyl Allergy Mild VOMITS 11/29/18 Yes fluticasone Allergy Mild Anxiety 11/11/19 Yes hydrochlorothiazide Allergy Mild GI PROBLEMS 11/29/18 Yes losartan Allergy Unknown 11/29/18 Yes Physical Exam: PE: Constitutional: Well developed, well nourished, no acute distress, non-toxic appearance. [] HENT: Normocephalic, atraumatic, bilateral external ears normal, oropharynx moist, no oral exudates, nose normal. [] Eyes: PERRLA, EOMI, conjunctiva normal, no discharge. [] Neck: Normal range of motion, no tenderness, supple, no stridor. [] Cardiovascular:Heart rate regular rhythm, no murmur [] Lungs & Thorax: Bilateral breath sounds clear to auscultation [] Abdomen: Bowel sounds normal, soft, no tenderness, no masses, no pulsatile masses. [] Skin: Warm, dry, no erythema, no rash. [] Back: No tenderness, no CVA tenderness. [] Extremities: No tenderness, no cyanosis, no clubbing, ROM intact, no edema. [] Neurologic: Alert and oriented X 3, normal motor function, normal sensory function, no focal deficits noted. [] Psychologic: Affect normal, judgement normal, mood normal. [] Current Patient Data: Labs: Laboratory Tests Test 12/22/19 15:25 12/22/19 15:44 White Blood Count 9.8 x10^3/uL (4.0-11.0) Red Blood Count 4.66 x10^6/uL (3.50-5.40) Hemoglobin 11.1 g/dL (12.0-15.5) L Hematocrit 35.1 % (36.0-47.0) L Mean Corpuscular Volume 75 fL (79-100) L Mean Corpuscular Hemoglobin 24 pg (25-35) L Mean Corpuscular Hemoglobin Concent 32 g/dL (31-37) Red Cell Distribution Width 28.9 % (11.5-14.5) H Platelet Count 306 x10^3/uL (140-400) Neutrophils (%) (Auto) 63 % (31-73) Lymphocytes (%) (Auto) 25 % (24-48) Monocytes (%) (Auto) 5 % (0-9) Eosinophils (%) (Auto) 6 % (0-3) H Basophils (%) (Auto) 1 % (0-3) Neutrophils # (Auto) 6.2 x10^3uL (1.8-7.7) Lymphocytes # (Auto) 2.5 x10^3/uL (1.0-4.8) Monocytes # (Auto) 0.5 x10^3/uL (0.0-1.1) Eosinophils # (Auto) 0.6 x10^3/uL (0.0-0.7) Basophils # (Auto) 0.1 x10^3/uL (0.0-0.2) Toxic Granulation Slight Platelet Estimate Adequate (ADEQUATE) Large Platelets Few Hypochromasia Mod Poikilocytosis Slight Anisocytosis Marked Microcytosis Mod Target Cells Occ Ovalocytes Occ Prothrombin Time 9.8 SEC (9.4-11.4) Prothrombin Time INR 0.9 (0.9-1.1) Activated Partial Thromboplast Time 26 SEC (23-33) Sodium Level 130 mmol/L (136-145) L Potassium Level 4.0 mmol/L (3.5-5.1) Chloride Level 91 mmol/L (98-107) L Carbon Dioxide Level 29 mmol/L (21-32) Anion Gap 10 (6-14) Blood Urea Nitrogen 11 mg/dL (7-20) Creatinine 1.0 mg/dL (0.6-1.0) Estimated GFR (Cockcroft-Gault) 56.4 BUN/Creatinine Ratio 11 (6-20) Glucose Level 102 mg/dL (70-99) H Calcium Level 9.3 mg/dL (8.5-10.1) Magnesium Level 1.6 mg/dL (1.8-2.4) L Total Bilirubin 0.2 mg/dL (0.2-1.0) Aspartate Amino Transferase (AST) 28 U/L (15-37) Alanine Aminotransferase (ALT) 24 U/L (14-59) Alkaline Phosphatase 76 U/L (46-116) Troponin I Quantitative < 0.017 ng/mL (0-0.055) RU-Ldv-V-Type Natriuretic Peptide 81 pg/mL (0-124) Total Protein 7.8 g/dL (6.4-8.2) Albumin 3.4 g/dL (3.4-5.0) Albumin/Globulin Ratio 0.8 (1.0-1.7) L Lipase 103 U/L (73-393) Urine Collection Type Unknown Urine Color Straw Urine Clarity Clear Urine pH 6.0 Urine Specific [place] <=1.005 Urine Protein Neg (NEG-TRACE) Urine Glucose (UA) Neg mg/dL (NEG) Urine Ketones (Stick) Neg mg/dL (NEG) Urine Blood Neg (NEG) Urine Nitrite Neg (NEG) Urine Bilirubin Neg (NEG) Urine Urobilinogen Dipstick 0.2 mg/dL (0.2 mg/dL) Urine Leukocyte Esterase Neg (NEG) Urine RBC Rare /HPF (0-2) Urine WBC Rare /HPF (0-4) Urine Squamous Epithelial Cells Occ /LPF Urine Bacteria Few /HPF (0-FEW) Vital Signs: Vital Signs Date Time Temp Pulse Resp B/P (MAP) Pulse Ox O2 Delivery O2 Flow Rate FiO2 12/22/19 17:49 88 16 169/85 (113) 99 Nasal Cannula 2.0 12/22/19 14:55 99.8 EKG: EKG: EKG was done at 1527, heart rate of 90 bpm, normal sinus rhythm. No STEMI. Radiology/Procedures: Radiology/Procedures: [] Course & Med Decision Making: Course & Med Decision Making Pertinent Labs and Imaging studies reviewed. (See chart for details) Patient is a 59-year-old female who was evaluated in the ER due to high blood pressure, her blood pressure slightly elevated in ER, she is already on blood pressure medication. She will need to follow-up with her family doctor tomorrow. Stephanie Disclaimer: Stephanie Disclaimer: This electronic medical record was generated, in whole or in part, using a voice recognition dictation system. Departure Departure: Impression: Primary Impression: Hypertension Disposition: 01 HOME/RESIDENCE PRIOR TO ADM Condition: STABLE Referrals: DILOLN BERUMEN MD (PCP) PLEASE FOLLOW UP WITH YOUR DOCTOR TOMORROW FOR REEVALUATION. Patient Instructions: Hypertension NORAM MACIAS DO December 22, 2019 17:57
== END 2019-12-22 17:59 | disposition home or self-care (01) ==
LOC: ER 14:52
DX: I10 Essential (primary) hypertension (principal); F41.9 Anxiety disorder, unspecified; M19.90 Unspecified osteoarthritis, unspecified site; J44.9 Chronic obstructive pulmonary disease, unspecified; E11.9 Type 2 diabetes mellitus without complications; M79.7 Fibromyalgia; K21.9 Gastro-esophageal reflux disease without esophagitis; E78.00 Pure hypercholesterolemia, unspecified; K58.9 Irritable bowel syndrome, unspecified; G43.909 Migraine, unspecified, not intractable, without status migrainosus; F17.200 Nicotine dependence, unspecified, uncomplicated; Z86.2 Personal history of diseases of the blood and blood-forming organs and certain disorders involving the immune mechanism; Z86.73 Personal history of transient ischemic attack (TIA), and cerebral infarction without residual deficits; Z88.1 Allergy status to other antibiotic agents; Z88.8 Allergy status to other drugs, medicaments and biological substances; Z88.2 Allergy status to sulfonamides
CPT/HCPCS: 36415; 71045; 80053; 81001; 83690; 83735; 83880; 84443; 84484; 85025; 85610; 85730; 93005; 96365; 99285; J3475

== ENCOUNTER 2021-11-04 09:36 | Emergency (ER) | payer OTHER, MEDICAID ==
[~2021-11-04] VITALS: Ht 161.3 cm; Wt 90.0 kg
[~2021-11-04 09:36] MED LIST changes: -LISI1TAB19 PO; +LISI1TAB37 PO; +MORP-62 PO; -MORP15TA PO; -PANT40TA5 PO; +PANT40TA6 PO; +TIZA-75 PO; -TIZA4TAB2 PO
--- NOTE | 2021-11-04 09:54 | PHYS DOC ---
Past History Past Medical History: Anemia, Anxiety, Arthritis, Bronchitis, COPD, CVA, Diabetes, Fibromyalgia, GERD, High Cholesterol, Hypertension, IBS, Lung Disease, Migraines, Pneumonia, Seizure, Stroke, TIA, Other Past Surgical History: Hysterectomy, Other Additional Past Surgical Histo: BONES SPUR REMOVAL FROM HIP Smoking: Greater than 1 pack/day Alcohol Use: None Drug Use: None General Adult EDM: Chief Complaint: ABDOMINAL PAIN HPI: HPI: Patient is a 61-year-old female who presents with diffuse upper abdominal pain, right upper quad abdominal pain. Symptoms of been present for several days. She reports occasional nausea, no vomiting. She reports that she has had issues with constipation in the past, so she took a dose of MiraLAX, and she reports that all it does is causes her to have diarrhea. She denies urinary symptoms. She denies chest pain, cough, dyspnea. She denies fevers or chills. She denies anorexia. She has had years long history of intermittent abdominal pain issues. She has seen outpatient gastroenterology. She has a scheduled telehealth appointment with one of her GI doctors, and she is supposed to be scheduled for an endoscopy soon. Review of Systems: Review of Systems: Constitutional: Denies fever or chills HENT: Denies nasal congestion or sore throat Respiratory: Denies cough or shortness of breath Cardiovascular: Denies chest pain or edema GI: Upper abdominal pain, nausea, no vomiting, constipation : Denies urinary symptoms Musculoskeletal: Back pain, no changes reported today. Integument: Denies rash Neurologic: Denies headache, focal weakness or sensory changes Psychiatric: Depression and anxiety, no changes reported today. Allergies: Allergies: Allergies Coded Allergies Type Severity Reaction Last Updated Verified carvedilol Allergy Intermediate "made me sick" 06/23/17 Yes cephalexin Allergy Intermediate 11/11/19 Yes ciprofloxacin Allergy Intermediate 11/29/18 Yes duloxetine Allergy Intermediate MUSCLE ACHES 11/29/18 Yes fluconazole Allergy Intermediate 11/29/18 Yes nebivolol Allergy Intermediate 11/29/18 Yes nitrofurantoin Allergy Intermediate LEG ACHES 11/29/18 Yes nystatin Allergy Intermediate sores in mouth 11/29/18 Yes potassium chloride Allergy Intermediate "K DUR" 11/29/18 Yes pravastatin Allergy Intermediate unsteady on feet 11/29/18 Yes pregabalin Allergy Intermediate WORSENED FIBROMYALGIA 11/29/18 Yes sulfamethoxazole Allergy Intermediate 11/29/18 Yes trimethoprim Allergy Intermediate 11/29/18 Yes varenicline Allergy Intermediate NIGHT TERRORS 11/29/18 Yes azithromycin Allergy Mild yellow eyes 11/29/18 Yes bisacodyl Allergy Mild VOMITS 11/29/18 Yes fluticasone Allergy Mild Anxiety 11/11/19 Yes hydrochlorothiazide Allergy Mild GI PROBLEMS 11/29/18 Yes losartan Allergy Unknown 11/29/18 Yes Physical Exam: PE: Constitutional: Well developed, well nourished, no acute distress, non-toxic appearance. [] HENT: Normocephalic, atraumatic, oropharynx patent and clear, mucous membranes moist Eyes: Llera are anicteric conjunctive are normal Neck: Normal range of motion, no tenderness, supple, no stridor. [] Cardiovascular:Heart rate regular rhythm, +2 radial and +2 posterior tibial pulses bilaterally. Lungs & Thorax: Bilateral breath sounds clear to auscultation [] Abdomen: Abdomen is obese, soft, mildly distended, diffuse upper abdominal tenderness, specifically epigastric, left upper quadrant and right upper quadrant tenderness. No CVA tenderness. No palpable pulsatile mass. No flank abdominal ecchymoses. Normal bowel sounds. No lower abdominal tenderness. Skin: Warm, dry, no erythema, no rash. No jaundice. Back: No tenderness, no CVA tenderness. Range of motion. No deformity. Extremities: No tenderness, no cyanosis, no clubbing, ROM intact, +1 symmetric nonpitting lower extremity edema. This is chronic for her. No calf tenderness. Neurologic: Alert and oriented X 3, normal motor function, normal sensory function, no focal deficits noted. Ambulatory with a steady gait. Psychologic: Affect normal, judgement normal, mood normal. [] EKG: EKG: [] Radiology/Procedures: Radiology/Procedures: IMAGING REPORT Signed PATIENT: ANÍBAL MOON DACCOUNT: [id number] : 1960 LOCATION: ER AGE: 61 SEX: F EXAM STATUS: REG ER ORD. PHYSICIAN: PEDRO ANGEL DO REASON: upper and right sided abd pain PROCEDURE: ABDOMEN OR LWR BACK LTD ABDOMEN OR LOWER BACK LIMITED History: Upper and right-sided abdominal pain. Comparison: None. Technique: Sonographic examination of the right upper quadrant of the abdomen. Findings: Pancreas: Poorly visualized due to obscuring bowel gas. Visualized portions of the head and body are unremarkable. Liver: The liver measures 19.0 cm on. Liver echotexture is increased and heterogeneous. No focal hepatic lesions. Hepatopetal flow in the portal vein. Gallbladder: No gallstones, wall thickening or pericholecystic fluid. Bile ducts: The common duct measures 5 mm. Right kidney: 10.7 cm length. No mass or hydronephrosis. Aorta/IVC: Visualized portions are unremarkable. Other: No ascites. Impression: 1. Enlarged fatty liver. 2. No cholelithiasis or acute cholecystitis. Electronically signed by: Keith Santos MD (11/04/2021 11:17 AM) [id number] DICTATED AND SIGNED BY: KEITH SANTOS MD DATE: 11/04/21 1111 CC: PEDRO ANGEL DO; DILLON BERUMEN MD ~ IMAGING REPORT Signed PATIENT: ANÍBAL MOON DACCOUNT: [id number] : 1960 LOCATION: ER AGE: 61 SEX: F EXAM STATUS: REG ER ORD. PHYSICIAN: PEDRO ANGEL DO REASON: right sided abd pain, OMNI 300, 75ml PROCEDURE: CT ABD PELV W/ IV CONTRST ONLY CT ABDOMEN+PELVIS W History: Right-sided abdominal pain. Comparison: Ultrasound 11/04/2021. Technique: CT the abdomen and pelvis with intravenous contrast. Findings: The lung bases are clear. The liver is enlarged. No focal lesion. No focal bladder inflammatory changes. The pancreas is mildly fatty replaced. The spleen and adrenal glands are unremarkable. Normal kidneys. The stomach is nondistended. The small bowel is normal proximally. The distal small bowel loops demonstrate mild fecalization. There is a normal appendix. Prominent stool present throughout the cecum, ascending, transverse colon mild stool in the descending and sigmoid colon to the rectum. No colonic wall thickening or pericolonic inflammatory changes. The decompressed bladder is unremarkable. Status post hysterectomy. No pelvic or intra-abdominal free air or free fluid. Atherosclerotic vascular calcifications without aneurysm. No adenopathy. Intramuscular lipoma right hip. No acute osseous abnormality. Impression: 1. Prominent proximal colon stool burden and fecalization of the distal small bowel without obstruction or colonic inflammation identified. Findings likely represent related to constipation and slow transit. ------ Exposure: One or more of the following individualized dose reduction techniques were utilized for this examination: 1. Automated exposure control 2. Adjustment of the mA and/or kV according to patient size 3. Use of iterative reconstruction technique. Electronically signed by: Keith Santos MD (11/04/2021 1:16 PM) [id number] DICTATED AND SIGNED BY: KEITH SANTOS MD DATE: 11/04/211311 CC: PEDRO ANGEL DO; DILLON BERUMEN MD ~ Heart Score: C/O Chest Pain: No Risk Factors: Risk Factors: DM, Current or recent (<one month) smoker, HTN, HLP, family history of CAD, obesity. Risk Scores: Score 0 - 3: 2.5% MACE over next 6 weeks - Discharge Home Score 4 - 6: 20.3% MACE over next 6 weeks - Admit for Clinical Observation Score 7 - 10: 72.7% MACE over next 6 weeks - Early Invasive Strategies Course & Med Decision Making: Course & Med Decision Making Pertinent Labs and Imaging studies reviewed. (See chart for details) The patient is given IV morphine x2, IV Zofran, IV normal saline. She has a benign, nonsurgical abdominal exam. Imaging studies are unremarkable for any acute life-threatening or surgical process. Laboratory exams are unremarkable. I have discussed all of the findings, differential diagnosis and plan of care with her, at length. I recommend she follow-up with her PCP, she should keep her scheduled appointment with GI as well. No indication for admission or further invasive exams at this time. Return precautions are given. She verbalizes understanding. Stephanie Disclaimer: Stephanie Disclaimer: This electronic medical record was generated, in whole or in part, using a voice recognition dictation system. Departure Departure: Impression: Primary Impression: Upper abdominal pain Additional Impression: Constipation Qualified Codes: K59.00 - Constipation, unspecified Disposition: HOME / SELF CARE / HOMELESS Condition: STABLE Referrals: DILLON BERUMEN MD (PCP) Patient Instructions: Abdominal Pain (Nonspecific), Constipation, Adult Additional Instructions: Return to the ER for acute changes in pain, uncontrolled vomiting, vomiting blood, temperature 100.4 or higher, chest pain, shortness of breath, or other concerns. Please use [id number] stool softeners, twice a day, with plenty of water. You may also take an [id number] fiber supplement, such as Metamucil or fiber Gummies to help soften and bulk up your stool. Please keep y our follow-up appointments with your GI doctors, also see your primary care doctor for follow-up of this problem and for routine care. PEDRO ANGEL DO Nov 04, 2021 09:54
[2021-11-04] MEDS ORDERED: IV NORMAL SALINE 1,000ML 1,000 ML IV ONE (10:30)
[2021-11-04] MEDS ORDERED: MORPHINE SULFATE 4 MG/ML DISP.SYRIN. IV ONE ×2 (10:30→12:00)
[2021-11-04] MEDS ORDERED: ONDANSETRON PF 4 MG/2 ML VIAL. IVP ONE (10:30)
[2021-11-04 10:56] LABS: BASO % 1 % (0-3); EOS # 0.2 x10^3/uL (0.0-0.7); EOS % 2 % (0-3); HEMATOCRIT 37.4 % (36.0-47.0); HEMOGLOBIN 12.4 g/dL (12.0-15.5); LYMPH # 2.1 x10^3/uL (1.0-4.8); LYMPH % 27 % (24-48); MEAN CORPUSCULAR HEMOGLOBIN 30 pg (25-35); MEAN CORPUSCULAR HGB CONC 33 g/dL (31-37); MEAN CORPUSCULAR VOLUME 90 fL (79-100); MONO # 0.5 x10^3/uL (0.0-1.1); MONO % 6 % (0-9); NEUT % 64 % (31-73); PLATELET COUNT 234 x10^3/uL (140-400); RED BLOOD COUNT 4.16 x10^6/uL (3.50-5.40); RED CELL DISTRIBUTION WIDTH 13.6 % (11.5-14.5); WHITE BLOOD COUNT 7.9 x10^3/uL (4.0-11.0)
[2021-11-04 11:08] LABS: CALCIUM 8.7 mg/dL (8.5-10.1); POTASSIUM 4.1 mmol/L (3.5-5.1)
[2021-11-04 11:13] LABS: ALBUMIN 2.9 g/dL (3.4-5.0); ALBUMIN/GLOBULIN RATIO 0.8 (1.0-1.7); TOTAL BILIRUBIN 0.2 mg/dL (0.2-1.0); TOTAL PROTEIN 6.4 g/dL (6.4-8.2)
--- NOTE | 2021-11-04 11:19 | RAD ---
US ABDOMEN OR LOWER BACK LIMITED History: Upper and right-sided abdominal pain. Comparison: None. Technique: Sonographic examination of the right upper quadrant of the abdomen. Findings: Pancreas: Poorly visualized due to obscuring bowel gas. Visualized portions of the head and body are unremarkable. Liver: The liver measures 19.0 cm on. Liver echotexture is increased and heterogeneous. No focal he patic lesions. Hepatopetal flow in the portal vein. Gallbladder: No gallstones, wall thickening or pericholecystic fluid. Bile ducts: The common duct measures 5 mm. Right kidney: 10.7 cm length. No mass or hydronephrosis. Aorta/IVC: Visualized portions are unremarkable. Other: No ascites. Impression: 1. Enlarged fatty liver. 2. No cholelithiasis or acute cholecystitis. Electronically signed by: Keith Mejía MD (11/04/2021 11:17 AM) [id number]
[2021-11-04] MEDS ORDERED: IOHEXOL 300 MG/ML 75 ML VIAL. IV ONE (12:00)
[2021-11-04 12:04] LABS: BACTERIA,URINE MANY /HPF (0-FEW); CLARITY,URINE HAZY; COLOR,URINE YELLOW; GLUCOSE,URINE NEG (NEG); NITRITE,URINE NEG (NEG); RBC,URINE OCC /HPF (0-2); SQUAMOUS EPITHELIAL CELL,UR FEW /LPF; UROBILINOGEN,URINE 0.2 mg/dL (0.2 mg/dL); WBC,URINE 20-40 /HPF (0-4)
--- NOTE | 2021-11-04 13:19 | RAD ---
CT ABDOMEN+PELVIS W History: Right-sided abdominal pain. Comparison: Ultrasound 11/04/2021. Technique: CT the abdomen and pelvis with intravenous contrast. Findings: The lung bases are clear. The liver is enlarged. No focal lesion. No focal bladder inflammatory [place] es. The pancreas is mildly fatty replaced. The spleen and adrenal glands are unremarkable. Normal kid neys. The stomach is nondistended. The small bowel is normal proximally. The distal small bowel loops demon strate mild fecalization. There is a normal appendix. Prominent stool present throughout the cecum, a scending, transverse colon mild stool in the descending and sigmoid colon to the rectum. No colonic w all thickening or pericolonic inflammatory changes. The decompressed bladder is unremarkable. Status post hysterectomy. No pelvic or intra-abdominal free air or free fluid. Atherosclerotic vascular calcifications without aneurysm. No adenopathy. Intramus cular lipoma right hip. No acute osseous abnormality. Impression: 1. Prominent proximal colon stool burden and fecalization of the distal small bowel without obstruct ion or colonic inflammation identified. Findings likely represent related to constipation and slow fe jero transit. ------ Exposure: One or more of the following individualized dose reduction techniques were utilized for thi s examination: 1. Automated exposure control 2. Adjustment of the mA and/or kV according to patient size 3. Use of iterative reconstruction technique. Electronically signed by: Keith Mejía MD (11/04/2021 1:16 PM) [id number]
[2021-11-04 13:43] VITALS: BP 167/76
== END 2021-11-04 13:43 | disposition home or self-care (01) ==
LOC: ER 09:36
DX: K59.00 Constipation, unspecified (principal); R10.11 Right upper quadrant pain; R10.12 Left upper quadrant pain; M19.90 Unspecified osteoarthritis, unspecified site; J44.9 Chronic obstructive pulmonary disease, unspecified; E11.9 Type 2 diabetes mellitus without complications; M79.7 Fibromyalgia; K21.9 Gastro-esophageal reflux disease without esophagitis; E78.00 Pure hypercholesterolemia, unspecified; I10 Essential (primary) hypertension; G43.909 Migraine, unspecified, not intractable, without status migrainosus; F17.200 Nicotine dependence, unspecified, uncomplicated; Z86.2 Personal history of diseases of the blood and blood-forming organs and certain disorders involving the immune mechanism; Z86.73 Personal history of transient ischemic attack (TIA), and cerebral infarction without residual deficits; Z90.710 Acquired absence of both cervix and uterus; Z88.8 Allergy status to other drugs, medicaments and biological substances; Z88.1 Allergy status to other antibiotic agents; Z88.2 Allergy status to sulfonamides
CPT/HCPCS: 36415; 74177; 76705; 80053; 81001; 83605; 83690; 85025; 87077; 87086; 87186; 96361; 96374; 96375; 96376; 99285; J2270; J2405; J7030; Q9967